=== PATIENT | female | born 1935 | race Caucasian/White ===

== ENCOUNTER → 2021-07-02 | Outpatient (CLI) | payer MEDICARE, OTHER | END | disposition home or self-care (01) | LOC: Rad HDHVI 11:19 | PROVIDERS: ATTEND Internal Medicine Cardiovascular Disease | DX: J90 Pleural effusion, not elsewhere classified (principal); M47.814 Spondylosis without myelopathy or radiculopathy, thoracic region; Z91.81 History of falling | CPT/HCPCS: 71046 ==

== ENCOUNTER → 2021-07-05 | Outpatient (CLI) | payer MEDICARE, OTHER | END | disposition home or self-care (01) | LOC: Rad HDHVI 15:19 | PROVIDERS: ATTEND Internal Medicine Cardiovascular Disease | DX: R07.9 Chest pain, unspecified (principal); R06.02 Shortness of breath | CPT/HCPCS: 93306 ==

== ENCOUNTER → 2021-08-04 | Outpatient (CLI) | payer MEDICARE, OTHER ==
[~2021-08-04] VITALS: Ht 165.1 cm; Wt 79.4 kg
[~2021-08-04] MED LIST: ADENOSINE 67 MG in GIVE UN-DILUTED 0 ML IV ONE; ADENOSINE 90 MG/30 ML INJ IV ONE
[2021-08-04 11:26] LABS: Basophils # (auto) 0.1 10 ^3/uL (0-0.2); Basophils % (auto) 1.4 % (0.0-2.0); Eosinophils # (auto) 0.1 10 ^3/uL (0-0.8); Eosinophils % (auto) 1.2 % (0.0-7.0); Hematocrit 36.5 % (36.0-46.0); Hemoglobin 12.2 g/dL (12.2-16.2); Lymphocytes # (auto) 1.2 10 ^3/uL (0.4-5.4); Lymphocytes % (auto) 25.3 % (10.0-50.0); Mean Corpuscular Hemoglobin 30.9 pg (28.0-32.0); Mean Corpuscular Hgb Conc. 33.3 g/dL (32.0-36.0); Mean Corpuscular Volume 92.8 fL (80.0-100.0); Monocytes # (auto) 0.4 10 ^3/uL (0-1.3); Monocytes % (auto) 8.2 % (0.0-12.0); Neutrophils % (auto) 63.9 % (37.0-80.0); Nucleated Red Blood Cells % 0.1 %; Red Blood Cells 3.93 10^6/uL (4.0-5.20); Red Cell Distribution Width 14.8 % (11.8-14.3); White Blood Cell 4.7 10^3/uL (4.4-10.8)
[2021-08-04 11:27] LABS: Urine Blood Negative /uL (Negative); Urine Specific Gravity 1.023 (1.001-1.035)
[2021-08-04 11:48] LABS: Albumin 3.5 g/dL (3.4-5.0); Calcium 9.5 mg/dL (8.5-10.1); Potassium 4.1 mmol/L (3.5-5.1)
[2021-08-04 11:51] LABS: BUN/Creatinine Ratio 24.8
[2021-08-04 11:53] LABS: Bilirubin, Total 0.6 mg/dL (0.2-1.0)
[2021-08-04 11:59] LABS: Free T4 (Free Thyroxine) 1.13 ng/dL (0.89-1.76)
== END | disposition home or self-care (01) ==
LOC: Rad HDHVI 08:47
PROVIDERS: ATTEND Internal Medicine Cardiovascular Disease
DX: I10 Essential (primary) hypertension (principal); D51.3 Other dietary vitamin B12 deficiency anemia; E11.9 Type 2 diabetes mellitus without complications; E55.9 Vitamin D deficiency, unspecified; D64.9 Anemia, unspecified; R00.2 Palpitations; R53.1 Weakness; R30.0 Dysuria
CPT/HCPCS: 36415; 78452; 80053; 80061; 81003; 82306; 82607; 83036; 84439; 84443; 85025; 87086; 87088; 87186; 93005; 96374; 96375; A9500; J0153

== ENCOUNTER → 2021-08-06 | Outpatient (CLI) | payer MEDICARE, OTHER | END | disposition home or self-care (01) | LOC: Rad HDHVI 10:23 | PROVIDERS: ATTEND Internal Medicine Cardiovascular Disease | DX: I82.401 Acute embolism and thrombosis of unspecified deep veins of right lower extremity (principal); R60.9 Edema, unspecified | CPT/HCPCS: 93971 ==

== ENCOUNTER → 2021-12-13 | Outpatient (CLI) | payer MEDICARE, OTHER ==
[2021-12-13 11:29] LABS: Urine Blood Negative /uL (Negative); Urine Specific Gravity 1.018 (1.001-1.035)
[2021-12-13 11:40] LABS: Basophils # (auto) 0.1 10 ^3/uL (0-0.2); Basophils % (auto) 1.1 % (0.0-2.0); Eosinophils # (auto) 0 10 ^3/uL (0-0.8); Eosinophils % (auto) 0.8 % (0.0-7.0); Hematocrit 34.5 % (36.0-46.0); Hemoglobin 11.7 g/dL (12.2-16.2); Lymphocytes # (auto) 1.3 10 ^3/uL (0.4-5.4); Lymphocytes % (auto) 24.4 % (10.0-50.0); Mean Corpuscular Hemoglobin 31.2 pg (28.0-32.0); Mean Corpuscular Volume 91.9 fL (80.0-100.0); Monocytes # (auto) 0.5 10 ^3/uL (0-1.3); Monocytes % (auto) 10.1 % (0.0-12.0); Neutrophils # (auto) 3.4 10 ^3/uL (1.6-8.6); Neutrophils % (auto) 63.6 % (37.0-80.0); Nucleated Red Blood Cells % 0.1 %; Red Blood Cells 3.76 10^6/uL (4.0-5.20); Red Cell Distribution Width 14.4 % (11.8-14.3); White Blood Cell 5.3 10^3/uL (4.4-10.8)
[2021-12-13 11:57] LABS: Potassium 4.1 mmol/L (3.5-5.1)
[2021-12-13 12:04] LABS: BUN/Creatinine Ratio 18.1; Calcium 9.1 mg/dL (8.5-10.1)
== END | disposition home or self-care (01) ==
LOC: LAB 09:27
PROVIDERS: ATTEND Internal Medicine Cardiovascular Disease
DX: N39.0 Urinary tract infection, site not specified (principal); D64.9 Anemia, unspecified; I10 Essential (primary) hypertension
CPT/HCPCS: 36415; 80048; 81003; 85025; 87086; 87088; 87186

== ENCOUNTER → 2021-12-24 | Outpatient (CLI) | payer MEDICARE, OTHER ==
[~2021-12-24] MED LIST changes: -ADENOSINE 67 MG in GIVE UN-DILUTED 0 ML IV ONE; -ADENOSINE 90 MG/30 ML INJ IV ONE; +levoFLOXacin 500MG 100 ML IV ONE
[2021-12-24 12:55] VITALS: BP 144/76
[2021-12-24 14:02] VITALS: BP 142/77
== END | disposition home or self-care (01) ==
LOC: CHF HDHVI 12:59
PROVIDERS: ATTEND Internal Medicine Cardiovascular Disease
DX: N39.0 Urinary tract infection, site not specified (principal); I10 Essential (primary) hypertension; D64.9 Anemia, unspecified
CPT/HCPCS: 96365; G0463; J1956

== ENCOUNTER → 2022-02-28 | Outpatient (CLI) | payer MEDICARE, OTHER | END | disposition home or self-care (01) | LOC: Rad HDHVI 08:42 | PROVIDERS: ATTEND Internal Medicine Cardiovascular Disease | DX: I82.403 Acute embolism and thrombosis of unspecified deep veins of lower extremity, bilateral (principal); M79.605 Pain in left leg | CPT/HCPCS: 93971 ==

== ENCOUNTER → 2022-04-06 | Outpatient (CLI) | payer MEDICARE, OTHER ==
[~2022-04-06] MED LIST changes: +ALUM & MAG HYDROX-SIMETH LIQ(MAALOX) 30 ML ONE; +ALUM & MAG HYDROX-SIMETH LIQ(MAALOX) 30 ML PO ONE; +DONNATAL 5ml ORAL Elix (BELLADONNA ALK-PHENOBARB) ONE; +DONNATAL 5ml ORAL Elix (BELLADONNA ALK-PHENOBARB) PO ONE; +LIDOCAINE VISCOUS 2% 15ML UD ONE; +LIDOCAINE VISCOUS 2% 15ML UD PO ONE; +READI-CAT 2 (BARIUM SULF)(VANILLA SMOOTHIE) 450ML ONE; -levoFLOXacin 500MG 100 ML IV ONE
[2022-04-06 11:10] VITALS: BP 124/62
[2022-04-06 12:00] VITALS: BP 133/60
== END | disposition home or self-care (01) ==
LOC: Rad HDHVI 11:11
PROVIDERS: ATTEND Internal Medicine Cardiovascular Disease
DX: K40.90 Unilateral inguinal hernia, without obstruction or gangrene, not specified as recurrent (principal); K86.89 Other specified diseases of pancreas; I70.0 Atherosclerosis of aorta; R10.9 Unspecified abdominal pain
CPT/HCPCS: 74176; G0463

== ENCOUNTER → 2022-07-11 | Outpatient (CLI) | payer MEDICARE, OTHER | END | disposition home or self-care (01) | LOC: Rad HDHVI 15:47 | PROVIDERS: ATTEND Internal Medicine Cardiovascular Disease | DX: I82.431 Acute embolism and thrombosis of right popliteal vein (principal); R60.9 Edema, unspecified | CPT/HCPCS: 93971 ==

== ENCOUNTER → 2022-08-09 | Outpatient (CLI) | payer MEDICARE, OTHER ==
[2022-08-09 13:30] LABS: Basophils # (auto) 0.1 10 ^3/uL (0-0.2); Basophils % (auto) 1.1 % (0.0-2.0); Eosinophils # (auto) 0.1 10 ^3/uL (0-0.8); Eosinophils % (auto) 1.8 % (0.0-7.0); Hematocrit 38.1 % (36.0-46.0); Hemoglobin 12.6 g/dL (12.2-16.2); Lymphocytes # (auto) 1.4 10 ^3/uL (0.4-5.4); Lymphocytes % (auto) 27.2 % (10.0-50.0); Monocytes # (auto) 0.6 10 ^3/uL (0-1.3); Monocytes % (auto) 11.8 % (0.0-12.0); Neutrophils % (auto) 58.1 % (37.0-80.0); Nucleated Red Blood Cells % 0.2 %; Red Blood Cells 4.05 10^6/uL (4.0-5.20); Red Cell Distribution Width 14.4 % (11.8-14.3); White Blood Cell 5.1 10^3/uL (4.4-10.8)
[2022-08-09 13:38] LABS: Urine Blood Negative /uL (Negative); Urine Specific Gravity 1.024 (1.001-1.035)
[2022-08-09 13:47] LABS: Albumin 3.5 g/dL (3.4-5.0); Calcium 9.2 mg/dL (8.5-10.1); Potassium 4.1 mmol/L (3.5-5.1)
[2022-08-09 13:50] LABS: BUN/Creatinine Ratio 18.6
[2022-08-09 13:53] LABS: Bilirubin, Total 0.6 mg/dL (0.2-1.0); Total Protein 6.5 g/dL (6.4-8.2)
[2022-08-09 17:03] LABS: Free T4 (Free Thyroxine) 0.89 ng/dL (0.89-1.76)
== END | disposition home or self-care (01) ==
LOC: LAB 08:49
PROVIDERS: ATTEND Internal Medicine Cardiovascular Disease
DX: E55.9 Vitamin D deficiency, unspecified (principal); D51.3 Other dietary vitamin B12 deficiency anemia; D64.9 Anemia, unspecified; E11.9 Type 2 diabetes mellitus without complications; I10 Essential (primary) hypertension; R00.2 Palpitations; R53.1 Weakness; R30.0 Dysuria
CPT/HCPCS: 36415; 80053; 80061; 81003; 82306; 82607; 83036; 84439; 84443; 85025; 87086; 87088; 87186

== ENCOUNTER 2023-01-01 12:08 | Emergency (ER) | payer MEDICARE, OTHER ==
[~2023-01-01] VITALS: Ht 167.6 cm; Wt 81.0 kg
[2023-01-01 12:34] VITALS: BP 149/57
== END 2023-01-01 18:55 | disposition home or self-care (01) ==
LOC: ER 12:08
DX: S80.01XA Contusion of right knee, initial encounter (principal); Z96.651 Presence of right artificial knee joint; W18.39XA Other fall on same level, initial encounter; Y93.89 Activity, other specified; Y92.511 Restaurant or cafe as the place of occurrence of the external cause; Y99.8 Other external cause status
CPT/HCPCS: 73562

== ENCOUNTER → 2023-04-11 | Outpatient (CLI) | payer MEDICARE, OTHER ==
[2023-04-11 10:09] LABS: Basophils # (auto) 0.1 10 ^3/uL (0-0.2); Basophils % (auto) 1.5 % (0.0-2.0); Eosinophils # (auto) 0.1 10 ^3/uL (0-0.8); Eosinophils % (auto) 2.4 % (0.0-7.0); Hematocrit 36.2 % (36.0-46.0); Hemoglobin 12.2 g/dL (12.2-16.2); Lymphocytes # (auto) 1.4 10 ^3/uL (0.4-5.4); Lymphocytes % (auto) 27.2 % (10.0-50.0); Mean Corpuscular Hgb Conc. 33.6 g/dL (32.0-36.0); Mean Corpuscular Volume 92.3 fL (80.0-100.0); Monocytes # (auto) 0.5 10 ^3/uL (0-1.3); Monocytes % (auto) 10.6 % (0.0-12.0); Neutrophils % (auto) 58.3 % (37.0-80.0); Nucleated Red Blood Cells % 0.1 %; Red Blood Cells 3.92 10^6/uL (4.0-5.20); Red Cell Distribution Width 14.6 % (11.8-14.3); White Blood Cell 5.1 10^3/uL (4.4-10.8)
[2023-04-11 11:02] LABS: Urine Bacteria FEW /hpf (None Seen); Urine Blood Negative /uL (Negative); Urine Clarity Clear (Clear); Urine Color Yellow (Yellow); Urine Protein, UAD Negative (Negative); Urine Specific Gravity 1.023 (1.001-1.035); Urine Urobilinogen Normal (Negative); Urine WBC 21 /hpf (0 - 5)
[2023-04-11 11:16] LABS: Albumin 3.9 g/dL (3.2-4.8); Alkaline Phosphatase 85 U/L (46-116); Aspartate Aminotransferase 17 U/L (13-40); BUN/Creatinine Ratio 17.9 (10.0-20.0); Bilirubin, Direct 0.2 mg/dL (<0.3); Bilirubin, Total 0.8 mg/dL (0.2-1.0); Blood Urea Nitrogen 22 mg/dL (9-23); Calcium 9.3 mg/dL (8.5-10.1); Carbon Dioxide 28 mmol/L (20-30); Cholesterol 178 mg/dL (< 200); Glucose 82 mg/dL (74-106); HDL Cholesterol 64 mg/dL (40-59); LDL Cholesterol 105 mg/dL (< 100); Total Protein 6.3 g/dL (5.7-8.2); Triglycerides 79 mg/dL (< 150)
[2023-04-11 11:18] LABS: Alanine Aminotransferase 9 U/L (7-40)
[2023-04-11 11:30] LABS: Anion Gap 5 (5-15); Chloride 107 mmol/L (98-107); Potassium 4.7 mmol/L (3.5-5.1); Sodium 140 mmol/L (136-145)
== END | disposition home or self-care (01) ==
LOC: LAB 09:48
PROVIDERS: ATTEND Internal Medicine Cardiovascular Disease
DX: D51.3 Other dietary vitamin B12 deficiency anemia (principal); D64.9 Anemia, unspecified; E11.9 Type 2 diabetes mellitus without complications; E55.9 Vitamin D deficiency, unspecified; I10 Essential (primary) hypertension; R00.2 Palpitations; R53.1 Weakness; R30.0 Dysuria
CPT/HCPCS: 36415; 80048; 80061; 80076; 81001; 82306; 83036; 84443; 85025

== ENCOUNTER → 2023-08-09 | Outpatient (CLI) | payer MEDICARE, OTHER | END | disposition home or self-care (01) | LOC: Rad HDHVI 12:26 | PROVIDERS: ATTEND Internal Medicine Cardiovascular Disease | DX: I65.23 Occlusion and stenosis of bilateral carotid arteries (principal); I10 Essential (primary) hypertension; R07.89 Other chest pain | CPT/HCPCS: 93880 ==

== ENCOUNTER → 2023-09-05 | Outpatient (CLI) | payer MEDICARE, OTHER | END | disposition home or self-care (01) | LOC: Rad HDHVI 14:55 | PROVIDERS: ATTEND Internal Medicine Cardiovascular Disease | DX: I08.1 Rheumatic disorders of both mitral and tricuspid valves (principal); I10 Essential (primary) hypertension | CPT/HCPCS: 93306 ==

== ENCOUNTER → 2023-09-18 | Outpatient (CLI) | payer MEDICARE, OTHER ==
[~2023-09-18] MED LIST changes: -ALUM & MAG HYDROX-SIMETH LIQ(MAALOX) 30 ML ONE; -ALUM & MAG HYDROX-SIMETH LIQ(MAALOX) 30 ML PO ONE; -DONNATAL 5ml ORAL Elix (BELLADONNA ALK-PHENOBARB) ONE; -DONNATAL 5ml ORAL Elix (BELLADONNA ALK-PHENOBARB) PO ONE; +IOHEXOL 350 MG/ML 100ML IJ ONE; -LIDOCAINE VISCOUS 2% 15ML UD ONE; -LIDOCAINE VISCOUS 2% 15ML UD PO ONE; +METO25TA93 PO
[2023-09-18 12:35] VITALS: BP 140/80; PULSE 67; RESP 18; O2SAT 97
[2023-09-18 13:50] VITALS: BP 159/76; PULSE 73; RESP 18; O2SAT 97
== END | disposition home or self-care (01) ==
LOC: Rad HDHVI 12:18
PROVIDERS: ATTEND Internal Medicine Cardiovascular Disease
DX: K57.30 Diverticulosis of large intestine without perforation or abscess without bleeding (principal); K81.0 Acute cholecystitis; R60.9 Edema, unspecified
CPT/HCPCS: 74177; G0463; Q9967

== ENCOUNTER 2023-09-19 13:21 | Inpatient (IN) | payer MEDICARE, OTHER ==
[~2023-09-19] VITALS: Ht 167.6 cm; Wt 88.4 kg
[2023-09-19 14:52] LABS: Basophils # (auto) 0 10 ^3/uL (0-0.2); Basophils % (auto) 0.7 % (0.0-2.0); Eosinophils # (auto) 0.2 10 ^3/uL (0-0.8); Hematocrit 38.5 % (36.0-46.0); Hemoglobin 12.9 g/dL (12.2-16.2); Lymphocytes # (auto) 1.5 10 ^3/uL (0.4-5.4); Lymphocytes % (auto) 22.2 % (10.0-50.0); Mean Corpuscular Hemoglobin 31.3 pg (28.0-32.0); Mean Corpuscular Hgb Conc. 33.6 g/dL (32.0-36.0); Mean Corpuscular Volume 93.2 fL (80.0-100.0); Monocytes # (auto) 0.7 10 ^3/uL (0-1.3); Neutrophils # (auto) 4.1 10 ^3/uL (1.6-8.6); Neutrophils % (auto) 63.1 % (37.0-80.0); Red Blood Cells 4.12 10^6/uL (4.0-5.20); Red Cell Distribution Width 14.3 % (11.8-14.3); White Blood Cell 6.5 10^3/uL (4.4-10.8)
[2023-09-19 15:07] LABS: Albumin 4.3 g/dL (3.2-4.8); Alkaline Phosphatase 102 U/L (46-116); Anion Gap 5 (5-15); Aspartate Aminotransferase 19 U/L (13-40); BUN/Creatinine Ratio 15.1 (10.0-20.0); Blood Urea Nitrogen 19 mg/dL (9-23); Calcium 9.1 mg/dL (8.7-10.4); Carbon Dioxide 25 mmol/L (20-30); Chloride 106 mmol/L (98-107); Glucose 90 mg/dL (74-106); Lipase 39 U/L (12-53); Potassium 4.5 mmol/L (3.5-5.1); Sodium 136 mmol/L (136-145)
[2023-09-19 15:08] LABS: Bilirubin, Total 0.7 mg/dL (0.2-1.0); Total Protein 6.8 g/dL (5.7-8.2)
[2023-09-19 15:12] LABS: Alanine Aminotransferase < 9 U/L (7-40)
[2023-09-19 15:27] LABS: INR 1.09 (0.9-1.15); Partial Thromboplastin Time 30.5 SEC (24.5-34.5); Prothrombin Time 11.4 sec (9.3-11.8)
[2023-09-19] MEDS ORDERED: MORPHINE SULFATE INJ 2 MG/ml SYRG IV PRN (15:30)
[2023-09-19] MEDS ORDERED: DOCUSATE SOD 100 MG CAP PO PRN (15:30)
[2023-09-19] MEDS ORDERED: ONDANSETRON HCL 4 MG/2 ML VIAL IV PRN (15:30)
[2023-09-19] MEDS ORDERED: hydrALAZINE HCL 20 MG/ML VL IV PRN (15:30)
[2023-09-19] MEDS ORDERED: METO25TA93 PO (15:34)
[2023-09-19] MEDS: GASTROGRAFIN 120 ML SOL ONE (17:30)
[2023-09-19] MEDS: SODIUM CHLORIDE 0.9% 1,000 ML IV SCH (20:43)
[2023-09-20 00:46] VITALS: BP 148/84; PULSE 68; RESP 16; TEMP 97.6; O2SAT 99
[2023-09-20 05:00] VITALS: BP 144/78; PULSE 73; RESP 16; TEMP 97.4; O2SAT 98
[2023-09-20 06:46] LABS: Basophils # (auto) 0.1 10 ^3/uL (0-0.2); Eosinophils # (auto) 0.2 10 ^3/uL (0-0.8); Eosinophils % (auto) 3.1 % (0.0-7.0); Hematocrit 34.1 % (36.0-46.0); Hemoglobin 11.3 g/dL (12.2-16.2); Lymphocytes # (auto) 1.4 10 ^3/uL (0.4-5.4); Lymphocytes % (auto) 27.4 % (10.0-50.0); Mean Corpuscular Hemoglobin 31.3 pg (28.0-32.0); Mean Corpuscular Hgb Conc. 33.1 g/dL (32.0-36.0); Mean Corpuscular Volume 94.4 fL (80.0-100.0); Monocytes # (auto) 0.6 10 ^3/uL (0-1.3); Monocytes % (auto) 11.4 % (0.0-12.0); Neutrophils # (auto) 2.8 10 ^3/uL (1.6-8.6); Neutrophils % (auto) 57.1 % (37.0-80.0); Red Blood Cells 3.61 10^6/uL (4.0-5.20); Red Cell Distribution Width 14.4 % (11.8-14.3)
[2023-09-20 07:05] LABS: Albumin 3.5 g/dL (3.2-4.8); Alkaline Phosphatase 82 U/L (46-116); Calcium 8.8 mg/dL (8.5-10.1); Carbon Dioxide 24 mmol/L (20-30); Chloride 110 mmol/L (98-107); Glucose 76 mg/dL (74-106)
[2023-09-20 07:06] LABS: Anion Gap 8 (5-15); Aspartate Aminotransferase 18 U/L (13-40); BUN/Creatinine Ratio 13.8 (10.0-20.0); Bilirubin, Total 0.6 mg/dL (0.2-1.0); Blood Urea Nitrogen 16 mg/dL (9-23); Sodium 142 mmol/L (136-145); Total Protein 5.7 g/dL (5.7-8.2)
[2023-09-20 07:17] LABS: Alanine Aminotransferase < 9 U/L (7-40)
[2023-09-20 08:00] VITALS: RESP 17; O2SAT 95
[2023-09-20 09:08] VITALS: BP 157/73; PULSE 72; RESP 19; TEMP 97.7; O2SAT 98
[2023-09-20] MEDS: PANTOPRAZOLE 40 MG/10 ML VIAL INJ IV SCH (09:38)
[2023-09-20] MEDS: ENOXAPARIN SOD 40 MG/0.4 ML SYRINGE SC SCH (09:43)
[2023-09-20] MEDS: METOPROLOL SUCCINATE XL 50 MG TAB PO SCH (09:47)
[2023-09-20] MEDS: SODIUM CHLORIDE 0.9% 1,000 ML IV SCH (10:15)
[2023-09-20 13:00] VITALS: BP 159/54; PULSE 60; RESP 19; TEMP 98; O2SAT 97
[2023-09-21] MEDS ORDERED: PANTOPRAZOLE 40 MG TAB PO SCH (10:00)
== END 2023-09-20 18:28 | disposition home or self-care (01) | DRG 394 ==
LOC: ER 13:21 → OVERFLOW 15:23 → CENTRAL 23:37
PROVIDERS: ADMIT Nurse Practitioner Family; ATTEND Internal Medicine
DX: K40.30 Unilateral inguinal hernia, with obstruction, without gangrene, not specified as recurrent (principal); K56.609 Unspecified intestinal obstruction, unspecified as to partial versus complete obstruction; Z96.643 Presence of artificial hip joint, bilateral; Z96.659 Presence of unspecified artificial knee joint; E66.9 Obesity, unspecified; D64.9 Anemia, unspecified; K21.9 Gastro-esophageal reflux disease without esophagitis; I10 Essential (primary) hypertension; Z85.3 Personal history of malignant neoplasm of breast; Z86.718 Personal history of other venous thrombosis and embolism; Z90.11 Acquired absence of right breast and nipple; Z90.710 Acquired absence of both cervix and uterus; Z68.31 Body mass index [BMI] 31.0-31.9, adult
CPT/HCPCS: 36415; 74018; 74250; 76705; 80053; 83690; 85025; 85610; 85730; 86850; 86900; 86901; C9113; G0378

== ENCOUNTER → 2024-05-27 | Outpatient (CLI) | payer MEDICARE, OTHER ==
[~2024-05-27] MED LIST changes: -IOHEXOL 350 MG/ML 100ML IJ ONE; -READI-CAT 2 (BARIUM SULF)(VANILLA SMOOTHIE) 450ML ONE
[2024-05-27 11:52] LABS: Basophils # (auto) 0.1 10 ^3/uL (0-0.2); Basophils % (auto) 0.9 % (0.0-2.0); Eosinophils # (auto) 0.1 10 ^3/uL (0-0.8); Eosinophils % (auto) 1.4 % (0.0-7.0); Hematocrit 35.9 % (36.0-46.0); Hemoglobin 12.2 g/dL (12.2-16.2); Lymphocytes # (auto) 1.6 10 ^3/uL (0.4-5.4); Lymphocytes % (auto) 23.9 % (10.0-50.0); Mean Corpuscular Hemoglobin 32.4 pg (28.0-32.0); Mean Corpuscular Volume 95.1 fL (80.0-100.0); Monocytes # (auto) 0.7 10 ^3/uL (0-1.3); Monocytes % (auto) 10.2 % (0.0-12.0); Neutrophils # (auto) 4.1 10 ^3/uL (1.6-8.6); Neutrophils % (auto) 63.6 % (37.0-80.0); Nucleated Red Blood Cells % 0.1 %; Platelet Count (auto) 216 10^3/uL (140-450); Red Blood Cells 3.77 10^6/uL (4.0-5.20); Red Cell Distribution Width 16.1 % (11.8-14.3); White Blood Cell 6.5 10^3/uL (4.4-10.8)
[2024-05-27 11:56] LABS: Urine Blood Negative /uL (Negative); Urine Clarity Clear (Clear); Urine Color Yellow (Yellow); Urine Protein, UAD Negative (Negative); Urine Specific Gravity 1.023 (1.001-1.035); Urine Urobilinogen Normal (Negative)
[2024-05-27 12:11] LABS: Alanine Aminotransferase 12 U/L (7-40); Albumin 3.8 g/dL (3.2-4.8); Alkaline Phosphatase 88 U/L (46-116); Anion Gap 5 (5-15); Aspartate Aminotransferase 15 U/L (13-40); Blood Urea Nitrogen 21 mg/dL (9-23); Calcium 9.5 mg/dL (8.7-10.4); Carbon Dioxide 27 mmol/L (20-31); Chloride 109 mmol/L (98-107); Cholesterol 186 mg/dL (< 200); Glucose 94 mg/dL (74-106); LDL Cholesterol 108 mg/dL (< 100); Potassium 4.6 mmol/L (3.5-5.1); Sodium 141 mmol/L (136-145); Triglycerides 98 mg/dL (< 150)
[2024-05-27 12:12] LABS: Bilirubin, Direct 0.2 mg/dL (<0.3); Bilirubin, Total 0.7 mg/dL (0.2-1.0); HDL Cholesterol 63 mg/dL (40-59); Total Protein 6.3 g/dL (5.7-8.2)
== END | disposition home or self-care (01) ==
LOC: LAB 11:05
PROVIDERS: ATTEND Internal Medicine Cardiovascular Disease
DX: I10 Essential (primary) hypertension (principal); E11.9 Type 2 diabetes mellitus without complications; E55.9 Vitamin D deficiency, unspecified; R30.0 Dysuria; D61.9 Aplastic anemia, unspecified; R00.2 Palpitations
CPT/HCPCS: 36415; 80048; 80061; 80076; 81003; 83036; 85025

== ENCOUNTER → 2024-08-20 | Outpatient (CLI) | payer MEDICARE, OTHER ==
--- NOTE | 2024-08-20 13:59 | DVHSR ---
APPROVED REPORT EXAM: Two-dimensional and M-mode echocardiogram with Doppler and color Doppler. DIMENSIONS LVDd4.1 (3.8-5.7cm)LA (2D)4.3 (1.9-4.0cm)Aortic Root3.3 (2.0-3.7cm) LVDs3.0 (2.5-4.0cm)LA (MM) (1.9-4.0cm)Aortic Cusp Exc1.5 (1.5-2.0cm) EF (%) 53.4 (55-70%)Rt. Atrium3.5 (1.9-4.0cm)Asc. Aorta cm IVSd0.9 (0.7-1.1cm)RV (D)3.0 (1.8-2.4cm) PWd1.1 (0.7-1.1cm) Mitral Valve MitralMitral Stenosis E wave0.68m/sMV Mean GR.mmHg A wave0.75m/sMV Peak GR.42mmHg E/A ratio0.92D MVAcm2 DECEL [id number] 1/2 Timems Aortic Valve Aortic ValveAortic Stenosis V11.28m/Janelle Mean GR.4mmHg V21.41m/Janelle Peak GR.8mmHg Pulmonic Valve V20.72m/s Tricuspid Valve TR Velocity2.46m/s [id number] LEFT VENTRICLE The Ejection Fraction is 50-55%. ATRIA The left atrium is mildly dilated. The right atrium size is normal. MITRAL VALVE The mitral valve is normal in structure and function. Mitral regurgitation is mild. PULMONIC VALVE The pulmonic valve is not well visualized. TRICUSPID VALVE The tricuspid valve is grossly normal. There is mild tricuspid regurgitation. AORTIC VALVE The aortic valve is mildlysclerotic. No aortic regurgitation is present. GREAT VESSELS The aortic root is normal size. PERICARDIAL EFFUSION There is no pericardial effusion. Conclusion EF 50-55% LAE MILD MR MILD AV SCLEROSIS
== END | disposition home or self-care (01) ==
LOC: Rad HDHVI 10:41
PROVIDERS: ATTEND Internal Medicine Cardiovascular Disease
DX: I08.3 Combined rheumatic disorders of mitral, aortic and tricuspid valves (principal); I11.0 Hypertensive heart disease with heart failure; I50.33 Acute on chronic diastolic (congestive) heart failure
CPT/HCPCS: 93306

== ENCOUNTER → 2024-08-26 | Outpatient (CLI) | payer MEDICARE, OTHER | END | disposition home or self-care (01) | LOC: Rad HDHVI 13:06 | PROVIDERS: ATTEND Internal Medicine Cardiovascular Disease | DX: I10 Essential (primary) hypertension (principal) | CPT/HCPCS: 93880 ==

== ENCOUNTER → 2024-12-03 | Outpatient (CLI) | payer MEDICARE, OTHER ==
[2024-12-03 10:35] LABS: Basophils # (auto) 0.1 10 ^3/uL (0-0.2); Basophils % (auto) 1.3 % (0.0-2.0); Eosinophils # (auto) 0.1 10 ^3/uL (0-0.8); Hematocrit 39.7 % (36.0-46.0); Hemoglobin 13.4 g/dL (12.2-16.2); Lymphocytes # (auto) 1.7 10 ^3/uL (0.4-5.4); Lymphocytes % (auto) 30.7 % (10.0-50.0); Mean Corpuscular Hemoglobin 31.1 pg (28.0-32.0); Mean Corpuscular Hgb Conc. 33.7 g/dL (32.0-36.0); Mean Corpuscular Volume 92.2 fL (80.0-100.0); Monocytes # (auto) 0.6 10 ^3/uL (0-1.3); Monocytes % (auto) 11.2 % (0.0-12.0); Neutrophils # (auto) 3.1 10 ^3/uL (1.6-8.6); Neutrophils % (auto) 54.8 % (37.0-80.0); Platelet Count (auto) 231 10^3/uL (140-450); Red Cell Distribution Width 14.6 % (11.8-14.3); White Blood Cell 5.6 10^3/uL (4.4-10.8)
[2024-12-03 10:40] LABS: Urine Blood TRACE /uL (Negative); Urine Clarity Turbid (Clear); Urine Color Yellow (Yellow); Urine Protein, UAD TRACE (Negative); Urine Specific Gravity 1.025 (1.001-1.035); Urine Urobilinogen Normal (Negative); Urine pH 5.5 (5.0-9.0)
[2024-12-03 10:41] LABS: Alanine Aminotransferase 14 U/L (7-40); Albumin 4.2 g/dL (3.2-4.8); Alkaline Phosphatase 102 U/L (46-116); Anion Gap 7 (5-15); Aspartate Aminotransferase 16 U/L (13-40); BUN/Creatinine Ratio 20.4 (10.0-20.0); Blood Urea Nitrogen 23 mg/dL (9-23); Carbon Dioxide 28 mmol/L (20-31); Chloride 107 mmol/L (98-107); Cholesterol 188 mg/dL (< 200); Glucose 92 mg/dL (74-106); Potassium 4.4 mmol/L (3.5-5.1); Sodium 142 mmol/L (136-145); Total Protein 6.6 g/dL (5.7-8.2); Triglycerides 126 mg/dL (< 150)
[2024-12-03 10:42] LABS: Bilirubin, Direct 0.2 mg/dL (<0.3); Bilirubin, Total 0.6 mg/dL (0.2-1.0)
[2024-12-03 10:44] LABS: HDL Cholesterol 61 mg/dL (40-59); LDL Cholesterol 108 mg/dL (< 100)
== END | disposition home or self-care (01) ==
LOC: LAB 09:58
PROVIDERS: ATTEND Internal Medicine Cardiovascular Disease
DX: I10 Essential (primary) hypertension (principal); E11.9 Type 2 diabetes mellitus without complications; E55.9 Vitamin D deficiency, unspecified; D64.9 Anemia, unspecified
CPT/HCPCS: 36415; 80048; 80061; 80076; 81003; 83036; 84443; 85025

== ENCOUNTER 2025-01-15 07:56 | Inpatient (IN) | payer MEDICARE, OTHER ==
[2025-01-07 11:33] LABS: Basophils # (auto) 0.1 10 ^3/uL (0-0.2); Basophils % (auto) 0.9 % (0.0-2.0); Eosinophils # (auto) 0.1 10 ^3/uL (0-0.8); Eosinophils % (auto) 1.9 % (0.0-7.0); Hematocrit 38.8 % (36.0-46.0); Hemoglobin 13.1 g/dL (12.2-16.2); Lymphocytes # (auto) 1.7 10 ^3/uL (0.4-5.4); Lymphocytes % (auto) 22.5 % (10.0-50.0); Mean Corpuscular Hemoglobin 31.3 pg (28.0-32.0); Mean Corpuscular Hgb Conc. 33.8 g/dL (32.0-36.0); Mean Corpuscular Volume 92.5 fL (80.0-100.0); Monocytes # (auto) 0.7 10 ^3/uL (0-1.3); Monocytes % (auto) 9.9 % (0.0-12.0); Neutrophils # (auto) 4.9 10 ^3/uL (1.6-8.6); Neutrophils % (auto) 64.8 % (37.0-80.0); Platelet Count (auto) 254 10^3/uL (140-450); Red Cell Distribution Width 14.3 % (11.8-14.3); White Blood Cell 7.5 10^3/uL (4.4-10.8)
[2025-01-07 11:39] LABS: Urine Bacteria FEW /hpf (None Seen); Urine Blood Negative /uL (Negative); Urine Clarity Clear (Clear); Urine Color Yellow (Yellow); Urine Hyaline Cast FEW /lpf (0 - 2); Urine Mucus FEW (None Seen); Urine Protein, UAD Negative (Negative); Urine Specific Gravity 1.022 (1.001-1.035); Urine Squamous Epithelial Cell FEW /hpf (<5); Urine Urobilinogen Normal (Negative); Urine WBC 13 /HPF (0-5)
[2025-01-07 11:52] LABS: INR 1.02 (0.9-1.15); Partial Thromboplastin Time 26.5 SEC (24.5-34.5); Prothrombin Time 10.8 sec (9.3-11.8)
[2025-01-07 12:01] LABS: Alanine Aminotransferase 10 U/L (7-40); Albumin 4.3 g/dL (3.2-4.8); Alkaline Phosphatase 104 U/L (46-116); Anion Gap 7 (5-15); Aspartate Aminotransferase 17 U/L (<34); BUN/Creatinine Ratio 14.3 (10.0-20.0); Blood Urea Nitrogen 17 mg/dL (9-23); Calcium 9.7 mg/dL (8.7-10.4); Carbon Dioxide 29 mmol/L (20-31); Chloride 106 mmol/L (98-107); Glucose 80 mg/dL (74-106); Sodium 142 mmol/L (136-145); Total Protein 6.8 g/dL (5.7-8.2)
[2025-01-07 12:02] LABS: Bilirubin, Total 0.5 mg/dL (0.2-1.0)
[~2025-01-15] VITALS: Ht 167.6 cm; Wt 91.4 kg
[~2025-01-15 07:56] MED LIST changes: +APIX5TAB PO; +CHOL25CH3 PO; +CRAN400T6 PO; +FURO1TAB31 PO; +POLY335015 PO; +POTA-36 PO; +PROBTAB12 OR; +RED1CAP PO
[2025-01-15] MEDS: levoFLOXacin 500MG 100 ML IV ONE (08:25)
[2025-01-15] MEDS ORDERED: fentaNYL CITRATE 100 MCG/2 ML VL ONE (10:38)
[2025-01-15] MEDS ORDERED: LIDOCAINE 1% INJ PF 5ML AMP ONE (10:38)
[2025-01-15] MEDS ORDERED: DexAMETHasone SOD PHOS 10MG/1ML VIAL INJ ONE (10:38)
[2025-01-15] MEDS ORDERED: ONDANSETRON HCL 4 MG/2 ML VIAL ONE (10:38)
[2025-01-15] MEDS ORDERED: GLYCOPYRROLATE 0.2 MG/ML 1ML VIAL ONE (10:38)
[2025-01-15] MEDS ORDERED: PROPOFOL 10 MG/ML 20 ML IV ONE (10:38)
[2025-01-15] MEDS ORDERED: ceFAZolin 1GM VL ONE (11:41)
[2025-01-15] MEDS ORDERED: KETAMINE 50mg/ML 10ml Vial 10 ML ONE (11:41)
[2025-01-15] MEDS: FAMOTIDINE (10MG/ML) 2ML VL IV ONE (12:06)
[2025-01-15] MEDS: LIDOCAINE W/ EPINEPHRINE 1% 20ML VIAL ONE (12:15)
[2025-01-15] MEDS: BUPIVACAINE 0.5% P/F INJ 10 ML VIAL ONE (12:15)
[2025-01-15 12:23] VITALS: PULSE 91; RESP 14; O2SAT 98
[2025-01-15] MEDS: levoFLOXacin 500MG 100 ML IV SCH (12:30)
[2025-01-15] MEDS ORDERED: HYDROmorphone HCL 2 MG/ML VL/or syr IV PRN ×2 (12:30)
--- NOTE | 2025-01-15 14:28 | DVHOP ---
DATE OF SURGERY: 01/15/2025 PREOPERATIVE DIAGNOSIS: Right inguinal hernia. POSTOPERATIVE DIAGNOSIS: Right inguinal hernia. SURGEON: Nnamdi Kim MD. MANAGER FLOAT SURGEON: Medardo Ty. ANESTHESIA: General. ANESTHESIOLOGIST: Dr. Johnson. PROCEDURE: Repair of right inguinal hernia. DESCRIPTION OF PROCEDURE: Under adequate anesthesia with the patient's skin prepped and draped, an incision was made over the visible palpable bulge in the right groin. Adipose tissue divided down to the fibers of the external oblique aponeurosis. A large inguinal hernia was then encountered. It was grasped with a Carnegie forceps and placed on tension. Surrounding tissues were mobilized and transected so as to be able to reduce the hernia, which was then accomplished reducing the hernia through the internal inguinal ring. It was held back with a baby Mahendra retractor. The floor of the hernia was then exposed and dissected free of much adipose tissue. Repair consisted of interrupted nonabsorbable sutures through the conjoint tendon, Jaylen's ligament, and Poupart's ligament. The entire floor was repaired with careful protection of the iliac vein and the inguinal ilial nerve. The patient's wound was then irrigated and approximated using Monocryl sutures, Dermabond glue, and Steri-Strips. The patient remained stable throughout the procedure, left the operating room following an accurate needle and sponge count. Her daughter, Salud, was thoroughly informed at [phone]. Nnamdi Kim MD PF/ELVA TID: [id number] RECEIPT: [id number]
[2025-01-15] MEDS: CARVEDILOL 12.5 MG TAB PO ONE (14:33)
[2025-01-15] MEDS: D5W/SOD CHL 0.45%/KCL 20MEQ 1,000 ML IV SCH (14:39)
[2025-01-15] MEDS ORDERED: MORPHINE SULFATE INJ 2 MG/ml SYRG IV PRN (15:15)
[2025-01-15] MEDS ORDERED: NITROGLYCERIN 0.4 MG SL TAB SL PRN (15:15)
[2025-01-15] MEDS ORDERED: LABETALOL HCL 20 MG/4 ML VL IV PRN (15:45)
--- NOTE | 2025-01-15 15:47 | DVHHP2 ---
Review of Systems Allergies: Coded Allergies: Penicillins (Unverified Adverse Reaction, Unknown, unknown , 01/07/25) Medications Current Medications Medications Dose Ordered Sig/Robbin Route Start Time Stop Time Status Last Admin Dose Admin Potassium Chloride/Dextrose/ Sod Cl 1,000 ml @ 50 mls/hr Q20H IV 01/15/25 12:30 01/15/25 14:39 50 MLS/HR Hydromorphone HCl 0.25 mg Q2HPRN PRN IV 01/15/25 12:30 Levofloxacin/ Dextrose 100 ml @ 100 mls/hr Q48H IV 01/15/25 12:30 Acetaminophen/ Codeine Phosphate 1 tab Q4HP PRN PO 01/15/25 12:30 Nitroglycerin 0.4 mg Q5MINP PRN SL 01/15/25 15:15 Morphine Sulfate 2 mg Q30M PRN IV 01/15/25 15:15 Exam Vital Signs Vital Signs Date Time Temp Pulse Resp B/P (MAP) Pulse Ox O2 Delivery O2 Flow Rate FiO2 01/15/25 14:33 73 164/78 01/15/25 08:20 97.3 20 98 97.3 Labs/Xrays Labs Test 01/07/25 11:23 Range/Units White Blood Count 7.5 4.4-10.8 10^3/uL Red Blood Count 4.20 4.0-5.20 10^6/uL Hemoglobin 13.1 12.2-16.2 g/dL Hematocrit 38.8 36.0-46.0 % Mean Corpuscular Volume 92.5 80.0-100.0 fL Mean Corpuscular Hemoglobin 31.3 28.0-32.0 pg Mean Corpuscular Hemoglobin Concent 33.8 32.0-36.0 g/dL Red Cell Distribution Width 14.3 11.8-14.3 % Platelet Count 254 140-450 10^3/uL Mean Platelet Volume 8.1 6.9-10.8 fL Neutrophils (%) (Auto) 64.8 37.0-80.0 % Lymphocytes (%) (Auto) 22.5 10.0-50.0 % Monocytes (%) (Auto) 9.9 0.0-12.0 % Eosinophils (%) (Auto) 1.9 0.0-7.0 % Basophils (%) (Auto) 0.9 0.0-2.0 % Neutrophils # (Auto) 4.9 1.6-8.6 10 ^3/uL Lymphocytes # (Auto) 1.7 0.4-5.4 10 ^3/uL Monocytes # (Auto) 0.7 0-1.3 10 ^3/uL Eosinophils # (Auto) 0.1 0-0.8 10 ^3/uL Basophils # (Auto) 0.1 0-0.2 10 ^3/uL Nucleated Red Blood Cells 0.0 % Prothrombin Time 10.8 9.3-11.8 sec Prothrombin Time INR 1.02 0.9-1.15 Activated Partial Thromboplast Time 26.5 24.5-34.5 SEC Urine Color Yellow Yellow Urine Clarity Clear Clear Urine pH 5.0 5.0-9.0 Urine Specific [place] 1.022 1.001-1.035 Urine Protein Negative Negative Urine Ketones Negative Negative Urine Blood Negative Negative /uL Urine Nitrite 1+ H Negative Urine Bilirubin Negative Negative Urine Urobilinogen Normal Negative mg/dL Urine Leukocyte Esterase 1+ Negative /uL Urine RBC 1 0 - 4 /hpf Urine Microscopic WBC 13 H 0-5 /HPF Urine Squamous Epithelial Cells Few <5 /hpf Urine Bacteria Few H None Seen /hpf Urine Hyaline Casts Few 0 - 2 /lpf Urine Mucus Few None Seen Urine Glucose Normal Normal mg/dL Sodium Level 142 136-145 mmol/L Potassium Level 4.0 3.5-5.1 mmol/L Chloride Level 106 98-107 mmol/L Carbon Dioxide Level 29 20-31 mmol/L Anion Gap 7 5-15 Blood Urea Nitrogen 17 9-23 mg/dL Creatinine 1.19 H 0.550-1.02 mg/dL Glomerular Filtration Rate Calc 44 >90 mL/min BUN/Creatinine Ratio 14.3 10.0-20.0 Serum Glucose 80 74-106 mg/dL Calcium Level 9.7 8.7-10.4 mg/dL Total Bilirubin 0.5 0.2-1.0 mg/dL Aspartate Amino Transferase (AST) 17 <34 U/L Alanine Aminotransferase (ALT) 10 7-40 U/L Alkaline Phosphatase 104 46-116 U/L Total Protein 6.8 5.7-8.2 g/dL Albumin 4.3 3.2-4.8 g/dL Assessment/Plan Assessment/Plan SEE DICTATED NOTE Plan discussed with: Patient My Orders Orders - KT BROWN MD Procedure Category Date Status Time Admit ADMIT 01/15/25 Transmitted 15:03 Oxygen By Nasal RT 01/15/25 Transmitted Cannula 15:03 Nitroglycerin PHA 01/15/25 In Process Sublingual (Ntrostat 15:15 Morphine Sulfate PHA 01/15/25 In Process Injection 15:15 Stat Ekg For Chest [facility] 01/15/25 In Process Pain 15:03 Notify Md Of Changes [facility] 01/15/25 In Process From Base 15:03 Semi Driver For [facility] 01/15/25 In Process 24 Hours 15:03 Emergency Dysrhythmia [facility] 01/15/25 In Process Protocol 15:03 Rhythm Strips Once [facility] 01/15/25 In Process Every Shift 15:03 Date of Service: Jan 15, 2025 Billing Provider: KT BROWN MD Common Visit Codes: [id number] INP/OBS CARE (HIGH) Secondary Visit Codes: [id number] CARE PLAN 30 MINUTES KT BROWN MD Jan 15, 2025 15:47
--- NOTE | 2025-01-15 16:01 | DVHHP ---
ADMIT DATE: 01/15/2025 HISTORY OF PRESENT ILLNESS: The patient is an 89-year-old lady who has been admitted after she underwent repair of a right inguinal hernia. The patient denies any significant pain. No chest pain. No shortness of breath. No abdominal pain. No nausea or vomiting. REVIEW OF SYSTEMS: Review of rest of the other systems is currently negative. PAST MEDICAL HISTORY: Significant for DVT in the right leg, hypertension, previous history of breast cancer. MEDICATIONS: Include metoprolol, Eliquis. ALLERGIES: PENICILLIN. SOCIAL HISTORY: Lives alone. Denies smoking or alcohol. FAMILY HISTORY: Negative. PHYSICAL EXAMINATION: GENERAL: The patient is awake and alert. VITAL SIGNS: Temperature 97.3, pulse 73 per minute, blood pressure 133/80. SHEENT: Unremarkable. There is no JVD. No pedal edema. LUNGS: Equal bilaterally. No added sounds. CARDIOVASCULAR: S1 and S2 is regular. No murmurs. ABDOMEN: Soft. Bowel sounds are hypoactive. There is a dressing at the site of the surgery. NEUROLOGIC: Nonfocal. MUSCULOSKELETAL: Normal. ASSESSMENT AND PLAN: * Hypertension for which she will continue on Lopressor. * History of right leg DVT. The patient will be monitored. Eliquis will be held. * Status post right inguinal hernia surgery. She will be placed on pain medication and IV fluids. * Advance care planning: The patient is a full code-Time spent was 18 minutes. MD HEMALATHA Rowley/JADE TID: [id number] RECEIPT: [id number] [facility]
[2025-01-15 17:21] VITALS: O2SAT 98
[2025-01-15] MEDS: ONDANSETRON HCL 4 MG/2 ML VIAL IV ONE (19:52)
[2025-01-15] MEDS: HYDROmorphone HCL 2 MG/ML VL/or syr IV PRN (19:54)
[2025-01-15 21:00] VITALS: BP 127/70; PULSE 65; RESP 18; TEMP 97.6; O2SAT 96
[2025-01-16] VITALS (8 sets, daily range): BP systolic 107–134; BP diastolic 46–75; PULSE 54–74; RESP 15–18; TEMP 97.3–97.8; O2SAT 94–98
[2025-01-16 05:59] LABS: Basophils # (auto) 0 10 ^3/uL (0-0.2); Basophils % (auto) 0.2 % (0.0-2.0); Eosinophils # (auto) 0 10 ^3/uL (0-0.8); Hemoglobin 12.1 g/dL (12.2-16.2); Lymphocytes # (auto) 0.7 10 ^3/uL (0.4-5.4); Lymphocytes % (auto) 7.7 % (10.0-50.0); Mean Corpuscular Hemoglobin 31.1 pg (28.0-32.0); Mean Corpuscular Hgb Conc. 33.7 g/dL (32.0-36.0); Mean Corpuscular Volume 92.3 fL (80.0-100.0); Monocytes # (auto) 0.6 10 ^3/uL (0-1.3); Monocytes % (auto) 6.5 % (0.0-12.0); Neutrophils # (auto) 8.3 10 ^3/uL (1.6-8.6); Neutrophils % (auto) 85.6 % (37.0-80.0); Nucleated Red Blood Cells % 0.1 %; Platelet Count (auto) 189 10^3/uL (140-450); Red Cell Distribution Width 14.5 % (11.8-14.3); White Blood Cell 9.7 10^3/uL (4.4-10.8)
[2025-01-16 06:32] LABS: Albumin 3.7 g/dL (3.2-4.8); Alkaline Phosphatase 77 U/L (46-116); Anion Gap 8 (5-15); Aspartate Aminotransferase 13 U/L (<34); BUN/Creatinine Ratio 16.4 (10.0-20.0); Blood Urea Nitrogen 18 mg/dL (9-23); Calcium 9.3 mg/dL (8.7-10.4); Carbon Dioxide 26 mmol/L (20-31); Chloride 105 mmol/L (98-107); Potassium 4.6 mmol/L (3.5-5.1); Sodium 139 mmol/L (136-145); Total Protein 5.8 g/dL (5.7-8.2)
[2025-01-16 06:33] LABS: Alanine Aminotransferase < 9 U/L (7-40); Bilirubin, Total 0.5 mg/dL (0.2-1.0); Glucose 151 mg/dL (74-106)
[2025-01-16] MEDS: METOPROLOL SUCCINATE XL 50 MG TAB PO SCH (09:42)
--- NOTE | 2025-01-16 11:29 | DVHPN2 ---
Progress Note - Dictate Date Seen: Jan 15, 2025 Medical Necessity Reason Pt with a Central, PICC or Fol: Yes The following are medically ne: Isabel Catheter Subjective PT WELL KNOWN TO ME NOW S/P ELECTIVE INGUINAL HERNIA REPAIR PMH; CT WITH CONTRAST WAS ORDERED URGENT CALL FROM RADIOLOGIST STATING 1. Small bowel obstruction secondary to right inguinal hernia. There is fluid and mesenteric edema within the hernia. Hernia incarceration should be excluded clinically. SO PT WAS TOLD TO COME TO THE EMERGENCY ROOM JESUS REPEAT HOWEVER NO EVIDENCE FOR OBSTRUCTION PT STILL WITH ABD PAIN AND SYMPTOMATIC HTN HX OF BREAST CA HX OF TKR GERD HX OF DVT ANEMIA RECURRENT OBSTRUCTIVE PHYSIOLOGY AND FECAL IMPACTION WITH INGUINAL HERNIA vital signs Vital Sign Date Time Temp Pulse Resp B/P (MAP) Pulse Ox O2 Delivery O2 Flow Rate FiO2 01/16/25 09:42 64 133/46 01/16/25 09:00 97.3 15 97 97.3 01/16/25 08:00 Room Air* 0 21 Total Intake and Output 01/15/25 01/15/25 01/16/25 15:00 23:00 07:00 Intake Total 100 ml 0 ml Output Total 700 ml Balance 100 ml -700 ml medications Current Medications Medications Dose Ordered Sig/Robbin Route Start Time Stop Time Status Last Admin Dose Admin Potassium Chloride/Dextrose/ Sod Cl 1,000 ml @ 50 mls/hr Q20H IV 01/15/25 12:30 01/16/25 09:42 50 MLS/HR Levofloxacin/ Dextrose 100 ml @ 100 mls/hr Q48H IV 01/15/25 12:30 Acetaminophen/ Codeine Phosphate 1 tab Q4HP PRN PO 01/15/25 12:30 Nitroglycerin 0.4 mg Q5MINP PRN SL 01/15/25 15:15 Morphine Sulfate 2 mg Q30M PRN IV 01/15/25 15:15 Hydromorphone HCl 0.25 mg Q3HP PRN IV 01/15/25 15:45 01/15/25 19:54 0.25 MG Metoprolol Succinate 25 mg DAILY PO 01/16/25 10:00 01/16/25 09:42 25 MG Labetalol HCl 10 mg Q4HP PRN IV 01/15/25 15:45 laboratory and microbiology Laboratory Tests 01/16/25 05:21 Test 01/16/25 05:21 Range/Units Serum Glucose 151 H 74-106 mg/dL Problem List S/P ELECTIVE INGUINAL HERNIA REPAIR PMH; CT WITH CONTRAST WAS ORDERED URGENT CALL FROM RADIOLOGIST STATING 1. Small bowel obstruction secondary to right inguinal hernia. There is fluid and mesenteric edema within the hernia. Hernia incarceration should be excluded clinically. SO PT WAS TOLD TO COME TO THE EMERGENCY ROOM JESUS REPEAT HOWEVER NO EVIDENCE FOR OBSTRUCTION PT STILL WITH ABD PAIN AND SYMPTOMATIC HTN HX OF BREAST CA HX OF TKR GERD HX OF DVT ANEMIA RECURRENT OBSTRUCTIVE PHYSIOLOGY AND FECAL IMPACTION WITH INGUINAL HERNIA Assessment/Plan S/P HERNIA REPAIR STABLE Plan discussed with: Patient CHRISTIANNE ZEPEDA MD Jan 16, 2025 11:29
--- NOTE | 2025-01-16 11:30 | DVHPN2 ---
Progress Note - Dictate Date Seen: Jan 16, 2025 Medical Necessity Reason Pt with a Central, PICC or Fol: Yes The following are medically ne: Isabel Catheter Subjective PT WELL KNOWN TO ME NOW S/P ELECTIVE INGUINAL HERNIA REPAIR PMH; CT WITH CONTRAST WAS ORDERED URGENT CALL FROM RADIOLOGIST STATING 1. Small bowel obstruction secondary to right inguinal hernia. There is fluid and mesenteric edema within the hernia. Hernia incarceration should be excluded clinically. SO PT WAS TOLD TO COME TO THE EMERGENCY ROOM JESUS REPEAT HOWEVER NO EVIDENCE FOR OBSTRUCTION PT STILL WITH ABD PAIN AND SYMPTOMATIC HTN HX OF BREAST CA HX OF TKR GERD HX OF DVT ANEMIA RECURRENT OBSTRUCTIVE PHYSIOLOGY AND FECAL IMPACTION WITH INGUINAL HERNIA vital signs Vital Sign Date Time Temp Pulse Resp B/P (MAP) Pulse Ox O2 Delivery O2 Flow Rate FiO2 01/16/25 09:42 64 133/46 01/16/25 09:00 97.3 15 97 97.3 01/16/25 08:00 Room Air* 0 21 Total Intake and Output 01/15/25 01/15/25 01/16/25 15:00 23:00 07:00 Intake Total 100 ml 0 ml Output Total 700 ml Balance 100 ml -700 ml medications Current Medications Medications Dose Ordered Sig/Robbin Route Start Time Stop Time Status Last Admin Dose Admin Potassium Chloride/Dextrose/ Sod Cl 1,000 ml @ 50 mls/hr Q20H IV 01/15/25 12:30 01/16/25 09:42 50 MLS/HR Levofloxacin/ Dextrose 100 ml @ 100 mls/hr Q48H IV 01/15/25 12:30 Acetaminophen/ Codeine Phosphate 1 tab Q4HP PRN PO 01/15/25 12:30 Nitroglycerin 0.4 mg Q5MINP PRN SL 01/15/25 15:15 Morphine Sulfate 2 mg Q30M PRN IV 01/15/25 15:15 Hydromorphone HCl 0.25 mg Q3HP PRN IV 01/15/25 15:45 01/15/25 19:54 0.25 MG Metoprolol Succinate 25 mg DAILY PO 01/16/25 10:00 01/16/25 09:42 25 MG Labetalol HCl 10 mg Q4HP PRN IV 01/15/25 15:45 laboratory and microbiology Laboratory Tests 01/16/25 05:21 Test 01/16/25 05:21 Range/Units Serum Glucose 151 H 74-106 mg/dL Problem List S/P ELECTIVE INGUINAL HERNIA REPAIR PMH; CT WITH CONTRAST WAS ORDERED URGENT CALL FROM RADIOLOGIST STATING 1. Small bowel obstruction secondary to right inguinal hernia. There is fluid and mesenteric edema within the hernia. Hernia incarceration should be excluded clinically. SO PT WAS TOLD TO COME TO THE EMERGENCY ROOM JESUS REPEAT HOWEVER NO EVIDENCE FOR OBSTRUCTION PT STILL WITH ABD PAIN AND SYMPTOMATIC HTN HX OF BREAST CA HX OF TKR GERD HX OF DVT ANEMIA RECURRENT OBSTRUCTIVE PHYSIOLOGY AND FECAL IMPACTION WITH INGUINAL HERNIA Assessment/Plan S/P HERNIA REPAIR STABLE H/H STABLE PT EVALUATION WHEN SURGICALLY CLEARED FOR PT Plan discussed with: Patient CHRISTIANNE ZEPEDA MD Jan 16, 2025 11:30
--- NOTE | 2025-01-16 12:05 | DVHPN2 ---
Progress Note Date Seen: Jan 16, 2025 Medical Necessity Reason Pt with a Central, PICC or Fol: Yes The following are medically ne: Isabel Catheter Objective vital signs Vital Sign Date Time Temp Pulse Resp B/P (MAP) Pulse Ox O2 Delivery O2 Flow Rate FiO2 01/16/25 09:42 64 133/46 01/16/25 09:00 97.3 15 97 97.3 01/16/25 08:00 Room Air* 0 21 Total Intake and Output 01/15/25 01/15/25 01/16/25 15:00 23:00 07:00 Intake Total 100 ml 0 ml Output Total 700 ml Balance 100 ml -700 ml medications Current Medications Medications Dose Ordered Sig/Robbin Route Start Time Stop Time Status Last Admin Dose Admin Potassium Chloride/Dextrose/ Sod Cl 1,000 ml @ 50 mls/hr Q20H IV 01/15/25 12:30 01/16/25 09:42 50 MLS/HR Levofloxacin/ Dextrose 100 ml @ 100 mls/hr Q48H IV 01/15/25 12:30 Acetaminophen/ Codeine Phosphate 1 tab Q4HP PRN PO 01/15/25 12:30 Nitroglycerin 0.4 mg Q5MINP PRN SL 01/15/25 15:15 Morphine Sulfate 2 mg Q30M PRN IV 01/15/25 15:15 Hydromorphone HCl 0.25 mg Q3HP PRN IV 01/15/25 15:45 01/15/25 19:54 0.25 MG Metoprolol Succinate 25 mg DAILY PO 01/16/25 10:00 01/16/25 09:42 25 MG Labetalol HCl 10 mg Q4HP PRN IV 01/15/25 15:45 laboratory and microbiology Laboratory Tests 01/16/25 05:21 Test 01/16/25 05:21 Range/Units Serum Glucose 151 H 74-106 mg/dL Problem List/Assessment/Plan Problem List/Assessment/Plan 01/16/25 doing well, no nausea, wound clean and well approximated, slightly ecchymotic, will advance diet and activity, may be discharged tomorrow Plan discussed with: Patient, Daughter SHAE MÁRQUEZ MD Jan 16, 2025 12:05
--- NOTE | 2025-01-16 14:31 | DVHPN2 ---
Progress Note Date Seen: Jan 16, 2025 Medical Necessity Reason Pt with a Central, PICC or Fol: Yes The following are medically ne: Isabel Catheter Subjective Patient reports: No new complaints Review of Systems: HEENT:Normal, CVS:Normal, RESPIRATORY:Normal, GI:Normal, :Normal, MSK:Normal, NEURO:Normal Objective vital signs Vital Sign Date Time Temp Pulse Resp B/P (MAP) Pulse Ox O2 Delivery O2 Flow Rate FiO2 01/16/25 13:00 97.6 62 15 116/67 (83) 97 97.6 01/16/25 08:00 Room Air* 0 21 Total Intake and Output 01/15/25 01/15/25 01/16/25 15:00 23:00 07:00 Intake Total 100 ml 0 ml Output Total 700 ml Balance 100 ml -700 ml medications Current Medications Medications Dose Ordered Sig/Robbin Route Start Time Stop Time Status Last Admin Dose Admin Potassium Chloride/Dextrose/ Sod Cl 1,000 ml @ 50 mls/hr Q20H IV 01/15/25 12:30 01/16/25 09:42 50 MLS/HR Levofloxacin/ Dextrose 100 ml @ 100 mls/hr Q48H IV 01/15/25 12:30 Acetaminophen/ Codeine Phosphate 1 tab Q4HP PRN PO 01/15/25 12:30 Nitroglycerin 0.4 mg Q5MINP PRN SL 01/15/25 15:15 Morphine Sulfate 2 mg Q30M PRN IV 01/15/25 15:15 Hydromorphone HCl 0.25 mg Q3HP PRN IV 01/15/25 15:45 01/15/25 19:54 0.25 MG Metoprolol Succinate 25 mg DAILY PO 01/16/25 10:00 01/16/25 09:42 25 MG Labetalol HCl 10 mg Q4HP PRN IV 01/15/25 15:45 Examination: GENERAL:Normal, HEENT:Normal, NECK:Normal, LUNGS:Normal, CVS:Normal, ABDOMEN:Normal, MSK:Normal, SKIN:Normal, NEURO:Normal, :Normal laboratory and microbiology Laboratory Tests 01/16/25 05:21 Test 01/16/25 05:21 Range/Units Serum Glucose 151 H 74-106 mg/dL Problem List/Assessment/Plan Problem List/Assessment/Plan * Hypertension for which she will continue on Lopressor. * History of right leg DVT: resume eliquis * Status post right inguinal hernia surgery. She will be placed on pain medication and IV fluids. * Advance care planning: The patient is a full code.Time spent was 18 minutes. Plan discussed with: Patient My Orders My Orders Orders - KT BROWN MD Procedure Category Date Status Time Admit ADMIT 01/15/25 Transmitted 15:03 Oxygen By Nasal RT 01/15/25 Transmitted Cannula 15:03 Nitroglycerin PHA 01/15/25 In Process Sublingual (Ntrostat 15:15 Morphine Sulfate PHA 01/15/25 In Process Injection 15:15 Stat Ekg For Chest [facility] 01/15/25 In Process Pain 15:03 Notify Md Of Changes [facility] 01/15/25 In Process From Base 15:03 Distresser For ADDISON 01/15/25 In Process 24 Hours 15:03 Emergency Dysrhythmia ADDISON 01/15/25 In Process Protocol 15:03 Rhythm Strips Once ADDISON 01/15/25 In Process Every Shift 15:03 Hydromorphone PHA 01/15/25 In Process Injection (Dilaudid 15:45 * Cardiology Consult CONS 01/15/25 Transmitted 15:43 Metoprolol Xl PHA 01/16/25 In Process Succinate (Toprol Xl) 10:00 Labetalol Hcl PHA 01/15/25 In Process (Labetalol Hcl) 15:45 Apixaban (Eliquis) PHA 01/16/25 Transmitted 22:00 Pt Request For Service PT 01/16/25 Transmitted 14:28 Basic Metabolic Panel LAB 01/17/25 Verified 06:00 Complete Blood Count LAB 01/17/25 Verified 06:00 Date of Service: Jan 16, 2025 Billing Provider: KT BROWN MD Common Visit Codes: [id number] INP/OBS CARE(HIGH) Secondary Visit Codes: [id number] CARE PLAN 30 MINUTES KT BROWN MD Jan 16, 2025 14:31
[2025-01-16] MEDS ORDERED: APIXABAN 5 MG TAB PO SCH (22:00)
[2025-01-16] MEDS: APIXABAN 5 MG TAB ONE (22:28)
[2025-01-16] MEDS: APIXABAN 5 MG TAB PO ONE (22:29)
[2025-01-17] VITALS (8 sets, daily range): BP systolic 113–151; BP diastolic 65–79; PULSE 58–91; RESP 16–18; TEMP 96.8–98.3; O2SAT 95–98
[2025-01-17 05:41] LABS: Basophils # (auto) 0.1 10 ^3/uL (0-0.2); Basophils % (auto) 0.9 % (0.0-2.0); Eosinophils # (auto) 0.1 10 ^3/uL (0-0.8); Eosinophils % (auto) 0.9 % (0.0-7.0); Hematocrit 35.8 % (36.0-46.0); Hemoglobin 12.2 g/dL (12.2-16.2); Lymphocytes # (auto) 1.3 10 ^3/uL (0.4-5.4); Lymphocytes % (auto) 18.5 % (10.0-50.0); Mean Corpuscular Hemoglobin 31.2 pg (28.0-32.0); Monocytes # (auto) 0.7 10 ^3/uL (0-1.3); Monocytes % (auto) 9.6 % (0.0-12.0); Neutrophils # (auto) 4.9 10 ^3/uL (1.6-8.6); Neutrophils % (auto) 70.1 % (37.0-80.0); Nucleated Red Blood Cells % 0.1 %; Platelet Count (auto) 186 10^3/uL (140-450); Red Blood Cells 3.89 10^6/uL (4.0-5.20); Red Cell Distribution Width 14.7 % (11.8-14.3)
[2025-01-17 05:52] LABS: Anion Gap 8 (5-15); Carbon Dioxide 25 mmol/L (20-31); Chloride 106 mmol/L (98-107); Potassium 4.4 mmol/L (3.5-5.1); Sodium 139 mmol/L (136-145)
[2025-01-17 05:53] LABS: Calcium 9.4 mg/dL (8.7-10.4)
[2025-01-17 05:58] LABS: BUN/Creatinine Ratio 20.4 (10.0-20.0); Blood Urea Nitrogen 22 mg/dL (9-23); Glucose 89 mg/dL (74-106)
[2025-01-17] MEDS: APIXABAN 5 MG TAB PO SCH (09:31)
--- NOTE | 2025-01-17 12:28 | DVHPN2 ---
Reviewed: Care Plan, H&P, Labs, Medications, Previous Orders, Radiology Changes from previous H/P or p: No Changes Objective Vitals Vital Signs Date Time Temp Pulse Resp B/P (MAP) Pulse Ox O2 Delivery O2 Flow Rate FiO2 01/17/25 09:31 78 113/73 01/17/25 09:00 96.8 18 95 96.8 01/17/25 08:00 Room Air* 0 21 Intake/Output Intake and Output 01/17/25 07:00 Intake Total 2058 ml Output Total 650 ml Balance 1408 ml Intake Oral 858 ml IV Total 1200 ml Output Urine Total 650 ml # Bowel Movements 1 Medications Current Medications Medications Dose Ordered Sig/Robbin Route Start Time Stop Time Status Last Admin Dose Admin Levofloxacin/ Dextrose 100 ml @ 100 mls/hr Q48H IV 01/15/25 12:30 01/17/25 11:31 100 MLS/HR Acetaminophen/ Codeine Phosphate 1 tab Q4HP PRN PO 01/15/25 12:30 Nitroglycerin 0.4 mg Q5MINP PRN SL 01/15/25 15:15 Morphine Sulfate 2 mg Q30M PRN IV 01/15/25 15:15 Hydromorphone HCl 0.25 mg Q3HP PRN IV 01/15/25 15:45 01/15/25 19:54 0.25 MG Metoprolol Succinate 25 mg DAILY PO 01/16/25 10:00 01/17/25 09:31 25 MG Labetalol HCl 10 mg Q4HP PRN IV 01/15/25 15:45 Apixaban 5 mg BID PO 01/17/25 10:00 01/17/25 09:31 5 MG Laboratory Results Laboratory Tests 01/17/25 05:25 Chemistry Test 01/17/25 05:25 Calcium Level 9.4 mg/dL (8.7-10.4) Urinalysis Test 01/07/25 11:23 Urine Color Yellow (Yellow) Urine Clarity Clear (Clear) Urine pH 5.0 (5.0-9.0) Urine Specific [place] 1.022 (1.001-1.035) Urine Protein Negative (Negative) Urine Ketones Negative (Negative) Urine Blood Negative /uL (Negative) Urine Nitrite 1+ (Negative) H Urine Bilirubin Negative (Negative) Urine Urobilinogen Normal mg/dL (Negative) Urine Leukocyte Esterase 1+ /uL (Negative) Urine RBC 1 /hpf (0 - 4) Urine Microscopic WBC 13 /HPF (0-5) H Urine Squamous Epithelial Cells Few /hpf (<5) Urine Bacteria Few /hpf (None Seen) H Urine Hyaline Casts Few /lpf (0 - 2) Urine Mucus Few (None Seen) Urine Glucose Normal mg/dL (Normal) Labs and/or images reviewed: Labs reviewed by me, Image(s) reviewed by me Assessment/Plan Assessment/Plan Status post right inguinal hernia surgery pain medications IV fluids Hypertension: Lopressor History of right leg DVT: Eliquis History of breast cancer History of total knee replacement Advanced care planning time 20 minutes Patient is full code Physical therapy ordered Plan discussed with: Patient Date of Service: Jan 17, 2025 Billing Provider: ROME BENNETT MD Common Visit Codes: [id number] INP/OBS CARE(HIGH) ROME BENNETT MD Jan 17, 2025 12:28
--- NOTE | 2025-01-17 13:32 | DVHPN2 ---
Progress Note - Dictate Date Seen: Jan 17, 2025 Medical Necessity Reason Pt with a Central, PICC or Fol: Yes The following are medically ne: Isabel Catheter Subjective PT WELL KNOWN TO ME NOW S/P ELECTIVE INGUINAL HERNIA REPAIR PMH; CT WITH CONTRAST WAS ORDERED URGENT CALL FROM RADIOLOGIST STATING 1. Small bowel obstruction secondary to right inguinal hernia. There is fluid and mesenteric edema within the hernia. Hernia incarceration should be excluded clinically. SO PT WAS TOLD TO COME TO THE EMERGENCY ROOM JESUS REPEAT HOWEVER NO EVIDENCE FOR OBSTRUCTION PT STILL WITH ABD PAIN AND SYMPTOMATIC HTN HX OF BREAST CA HX OF TKR GERD HX OF DVT ANEMIA RECURRENT OBSTRUCTIVE PHYSIOLOGY AND FECAL IMPACTION WITH INGUINAL HERNIA vital signs Vital Sign Date Time Temp Pulse Resp B/P (MAP) Pulse Ox O2 Delivery O2 Flow Rate FiO2 01/17/25 09:31 78 113/73 01/17/25 09:00 96.8 18 95 96.8 01/17/25 08:00 Room Air* 0 21 Total Intake and Output 01/16/25 01/16/25 01/17/25 15:00 23:00 07:00 Intake Total 1200 ml 458 ml 400 ml Output Total 150 ml 500 ml Balance 1200 ml 308 ml -100 ml medications Current Medications Medications Dose Ordered Sig/Robbin Route Start Time Stop Time Status Last Admin Dose Admin Levofloxacin/ Dextrose 100 ml @ 100 mls/hr Q48H IV 01/15/25 12:30 01/17/25 11:31 100 MLS/HR Acetaminophen/ Codeine Phosphate 1 tab Q4HP PRN PO 01/15/25 12:30 Nitroglycerin 0.4 mg Q5MINP PRN SL 01/15/25 15:15 Morphine Sulfate 2 mg Q30M PRN IV 01/15/25 15:15 Hydromorphone HCl 0.25 mg Q3HP PRN IV 01/15/25 15:45 01/15/25 19:54 0.25 MG Metoprolol Succinate 25 mg DAILY PO 01/16/25 10:00 01/17/25 09:31 25 MG Labetalol HCl 10 mg Q4HP PRN IV 01/15/25 15:45 Apixaban 5 mg BID PO 01/17/25 10:00 01/17/25 09:31 5 MG laboratory and microbiology Laboratory Tests 01/17/25 05:25 Test 01/17/25 05:25 Range/Units Serum Glucose 89 74-106 mg/dL Problem List S/P ELECTIVE INGUINAL HERNIA REPAIR PMH; CT WITH CONTRAST WAS ORDERED URGENT CALL FROM RADIOLOGIST STATING 1. Small bowel obstruction secondary to right inguinal hernia. There is fluid and mesenteric edema within the hernia. Hernia incarceration should be excluded clinically. SO PT WAS TOLD TO COME TO THE EMERGENCY ROOM JESUS REPEAT HOWEVER NO EVIDENCE FOR OBSTRUCTION PT STILL WITH ABD PAIN AND SYMPTOMATIC HTN HX OF BREAST CA HX OF TKR GERD HX OF DVT ANEMIA RECURRENT OBSTRUCTIVE PHYSIOLOGY AND FECAL IMPACTION WITH INGUINAL HERNIA Assessment/Plan S/P HERNIA REPAIR STABLE H/H STABLE PT EVALUATION WHEN SURGICALLY CLEARED FOR PT NO DISCHARGE TILL MONDAY START PT Plan discussed with: Patient, Daughter CHRISTIANNE ZEPEDA MD Jan 17, 2025 13:32
[2025-01-17] MEDS: DOCUSATE SOD 100 MG CAP PO SCH (21:23)
[2025-01-18] VITALS (8 sets, daily range): BP systolic 95–134; BP diastolic 57–81; PULSE 62–83; RESP 14–18; TEMP 97.3–98; O2SAT 94–97
--- NOTE | 2025-01-18 11:54 | DVHPN2 ---
Reviewed: Care Plan, H&P, Labs, Medications, Previous Orders, Radiology Changes from previous H/P or p: No Changes Objective Vitals Vital Signs Date Time Temp Pulse Resp B/P (MAP) Pulse Ox O2 Delivery O2 Flow Rate FiO2 01/18/25 09:29 65 134/81 01/18/25 09:00 97.6 18 95 97.6 01/18/25 08:07 Room Air* 0 21 Intake/Output Intake and Output 01/18/25 07:00 Intake Total 1640 ml Output Total 2200 ml Balance -560 ml Intake Oral 1640 ml Output Urine Total 2200 ml # Bowel Movements 1 Medications Current Medications Medications Dose Ordered Sig/Robbin Route Start Time Stop Time Status Last Admin Dose Admin Levofloxacin/ Dextrose 100 ml @ 100 mls/hr Q48H IV 01/15/25 12:30 01/17/25 11:31 100 MLS/HR Acetaminophen/ Codeine Phosphate 1 tab Q4HP PRN PO 01/15/25 12:30 Nitroglycerin 0.4 mg Q5MINP PRN SL 01/15/25 15:15 Morphine Sulfate 2 mg Q30M PRN IV 01/15/25 15:15 Hydromorphone HCl 0.25 mg Q3HP PRN IV 01/15/25 15:45 01/15/25 19:54 0.25 MG Metoprolol Succinate 25 mg DAILY PO 01/16/25 10:00 01/18/25 09:29 25 MG Labetalol HCl 10 mg Q4HP PRN IV 01/15/25 15:45 Apixaban 5 mg BID PO 01/17/25 10:00 01/18/25 09:29 5 MG Docusate Sodium 100 mg BID PO 01/17/25 22:00 01/18/25 09:28 100 MG Laboratory Results Laboratory Tests 01/17/25 05:25 Urinalysis Test 01/07/25 11:23 Urine Color Yellow (Yellow) Urine Clarity Clear (Clear) Urine pH 5.0 (5.0-9.0) Urine Specific [place] 1.022 (1.001-1.035) Urine Protein Negative (Negative) Urine Ketones Negative (Negative) Urine Blood Negative /uL (Negative) Urine Nitrite 1+ (Negative) H Urine Bilirubin Negative (Negative) Urine Urobilinogen Normal mg/dL (Negative) Urine Leukocyte Esterase 1+ /uL (Negative) Urine RBC 1 /hpf (0 - 4) Urine Microscopic WBC 13 /HPF (0-5) H Urine Squamous Epithelial Cells Few /hpf (<5) Urine Bacteria Few /hpf (None Seen) H Urine Hyaline Casts Few /lpf (0 - 2) Urine Mucus Few (None Seen) Urine Glucose Normal mg/dL (Normal) Labs and/or images reviewed: Labs reviewed by me, Image(s) reviewed by me Assessment/Plan Assessment/Plan Status post right inguinal hernia surgery pain medications IV fluids Hypertension: Lopressor History of right leg DVT: Eliquis History of breast cancer History of total knee replacement Patient is full code Physical therapy ordered Plan discussed with: Patient Date of Service: Jan 18, 2025 Billing Provider: ROME BENNETT MD Common Visit Codes: [id number] INP/OBS CARE(HIGH) ROME BENNETT MD Jan 18, 2025 11:54
[2025-01-18] MEDS: POLYETHYLENE GLYCOL 17 GM PWDR PO PRN (14:54)
[2025-01-18] MEDS: levoFLOXacin 250MG 50 ML IV SCH (15:52)
[2025-01-19] VITALS (9 sets, daily range): BP systolic 112–154; BP diastolic 42–79; PULSE 55–72; RESP 14–20; TEMP 96.6–98.1; O2SAT 95–99
--- NOTE | 2025-01-19 12:17 | DVHPN2 ---
Reviewed: Care Plan, H&P, Labs, Medications, Previous Orders, Radiology Changes from previous H/P or p: No Changes Objective Vitals Vital Signs Date Time Temp Pulse Resp B/P (MAP) Pulse Ox O2 Delivery O2 Flow Rate FiO2 01/19/25 10:53 67 141/78 01/19/25 09:00 96.9 18 96 96.9 01/18/25 20:00 Room Air* 0 21 Intake/Output Intake and Output 01/19/25 07:00 Intake Total 1270 ml Output Total 900 ml Balance 370 ml Intake Oral 1220 ml IV Total 50 ml Output Urine Total 900 ml # Voids 3 Medications Current Medications Medications Dose Ordered Sig/Robbin Route Start Time Stop Time Status Last Admin Dose Admin Acetaminophen/ Codeine Phosphate 1 tab Q4HP PRN PO 01/15/25 12:30 Nitroglycerin 0.4 mg Q5MINP PRN SL 01/15/25 15:15 Morphine Sulfate 2 mg Q30M PRN IV 01/15/25 15:15 Hydromorphone HCl 0.25 mg Q3HP PRN IV 01/15/25 15:45 01/15/25 19:54 0.25 MG Metoprolol Succinate 25 mg DAILY PO 01/16/25 10:00 01/19/25 10:53 25 MG Labetalol HCl 10 mg Q4HP PRN IV 01/15/25 15:45 Apixaban 5 mg BID PO 01/17/25 10:00 01/19/25 10:52 5 MG Docusate Sodium 100 mg BID PO 01/17/25 22:00 01/19/25 10:51 100 MG Polyethylene Glycol 17 gm DAILYPRN PRN PO 01/18/25 13:00 01/18/25 14:54 17 GM Levofloxacin 50 ml @ 50 mls/hr DAILY IV 01/18/25 15:26 01/19/25 10:54 50 MLS/HR Laboratory Results Laboratory Tests 01/17/25 05:25 Urinalysis Test 01/07/25 11:23 Urine Color Yellow (Yellow) Urine Clarity Clear (Clear) Urine pH 5.0 (5.0-9.0) Urine Specific [place] 1.022 (1.001-1.035) Urine Protein Negative (Negative) Urine Ketones Negative (Negative) Urine Blood Negative /uL (Negative) Urine Nitrite 1+ (Negative) H Urine Bilirubin Negative (Negative) Urine Urobilinogen Normal mg/dL (Negative) Urine Leukocyte Esterase 1+ /uL (Negative) Urine RBC 1 /hpf (0 - 4) Urine Microscopic WBC 13 /HPF (0-5) H Urine Squamous Epithelial Cells Few /hpf (<5) Urine Bacteria Few /hpf (None Seen) H Urine Hyaline Casts Few /lpf (0 - 2) Urine Mucus Few (None Seen) Urine Glucose Normal mg/dL (Normal) Assessment/Plan Assessment/Plan Status post right inguinal hernia surgery pain medications IV fluids Hypertension: Lopressor History of right leg DVT: Eliquis History of breast cancer History of total knee replacement Patient is full code Physical therapy ordered Per patient Dr. Colmenares is going to discharged her home on Monday Plan discussed with: Patient My Orders Orders - ROME BENNETT MD Procedure Category Date Status Time Polyethylene Glycol PHA 01/18/25 In Process 17g Powder (Miralax 13:00 Date of Service: Jan 19, 2025 Billing Provider: ROME BENNETT MD Common Visit Codes: [id number] INP/OBS CARE(HIGH) ROME BENNETT MD Jan 19, 2025 12:17
[2025-01-19] MEDS: ACETAMINOPHEN/CODEINE#3 (300/30mg) TAB PO PRN (21:22)
[2025-01-20 01:00] VITALS: BP 105/57; PULSE 66; RESP 18; TEMP 97.9; O2SAT 97
[2025-01-20 05:00] VITALS: BP 120/59; PULSE 62; RESP 18; TEMP 97.7; O2SAT 96
[2025-01-20 08:00] VITALS: PULSE 66; RESP 18; O2SAT 96
--- NOTE | 2025-01-20 11:33 | DVHDS2 ---
Discharge Summary Date of Admission Jan 15, 2025 at 15:03 Date of Discharge: Jan 20, 2025 Labs/Diagnostic Data: Laboratory Results Test 01/17/25 05:25 01/16/25 05:21 01/07/25 11:23 White Blood Count 7.0 10^3/uL (4.4-10.8) Red Blood Count 3.89 10^6/uL (4.0-5.20) Hemoglobin 12.2 g/dL (12.2-16.2) Hematocrit 35.8 % (36.0-46.0) Mean Corpuscular Volume 92.0 fL (80.0-100.0) Mean Corpuscular Hemoglobin 31.2 pg (28.0-32.0) Mean Corpuscular Hemoglobin Concent 34.0 g/dL (32.0-36.0) Red Cell Distribution Width 14.7 % (11.8-14.3) Platelet Count 186 10^3/uL (140-450) Mean Platelet Volume 8.2 fL (6.9-10.8) Neutrophils (%) (Auto) 70.1 % (37.0-80.0) Lymphocytes (%) (Auto) 18.5 % (10.0-50.0) Monocytes (%) (Auto) 9.6 % (0.0-12.0) Eosinophils (%) (Auto) 0.9 % (0.0-7.0) Basophils (%) (Auto) 0.9 % (0.0-2.0) Neutrophils # (Auto) 4.9 10 ^3/uL (1.6-8.6) Lymphocytes # (Auto) 1.3 10 ^3/uL (0.4-5.4) Monocytes # (Auto) 0.7 10 ^3/uL (0-1.3) Eosinophils # (Auto) 0.1 10 ^3/uL (0-0.8) Basophils # (Auto) 0.1 10 ^3/uL (0-0.2) Nucleated Red Blood Cells 0.1 % Sodium Level 139 mmol/L (136-145) Potassium Level 4.4 mmol/L (3.5-5.1) Chloride Level 106 mmol/L (98-107) Carbon Dioxide Level 25 mmol/L (20-31) Anion Gap 8 (5-15) Blood Urea Nitrogen 22 mg/dL (9-23) Creatinine 1.08 mg/dL (0.550-1.02) Glomerular Filtration Rate Calc 49 mL/min (>90) BUN/Creatinine Ratio 20.4 (10.0-20.0) Serum Glucose 89 mg/dL (74-106) Calcium Level 9.4 mg/dL (8.7-10.4) Total Bilirubin 0.5 mg/dL (0.2-1.0) Aspartate Amino Transferase (AST) 13 U/L (<34) Alanine Aminotransferase (ALT) < 9 U/L (7-40) Alkaline Phosphatase 77 U/L (46-116) Total Protein 5.8 g/dL (5.7-8.2) Albumin 3.7 g/dL (3.2-4.8) Prothrombin Time 10.8 sec (9.3-11.8) Prothrombin Time INR 1.02 (0.9-1.15) Activated Partial Thromboplast Time 26.5 SEC (24.5-34.5) Urine Color Yellow (Yellow) Urine Clarity Clear (Clear) Urine pH 5.0 (5.0-9.0) Urine Specific [place] 1.022 (1.001-1.035) Urine Protein Negative (Negative) Urine Ketones Negative (Negative) Urine Blood Negative /uL (Negative) Urine Nitrite 1+ (Negative) Urine Bilirubin Negative (Negative) Urine Urobilinogen Normal mg/dL (Negative) Urine Leukocyte Esterase 1+ /uL (Negative) Urine RBC 1 /hpf (0 - 4) Urine Microscopic WBC 13 /HPF (0-5) Urine Squamous Epithelial Cells Few /hpf (<5) Urine Bacteria Few /hpf (None Seen) Urine Hyaline Casts Few /lpf (0 - 2) Urine Mucus Few (None Seen) Urine Glucose Normal mg/dL (Normal) Other Laboratory Tests 01/17/25 05:25 Brief Hx & Hospital Course: see dictated note Condition at Discharge: Fair Final Diagnosis/Problems List inguinal hernia Discharge Disposition: Home with Health Services Discharge Instruct/Medications Diet: Regular Activity: No Restrictions, As Tolerated Follow Up/Referral: fu with dr Kim in 1 wk Medications: resume home meds script to pharmacy Discharge Statement: "Patient was advised to return to the ER or call 911 if any headaches, dizziness, shortness of breath, chest pain, abdominal pain, bleeding, fevers, or worsening of medical condition. Patient was counseled about treatment plan, medications, possible side effects, patientverbalized understanding. All questions were answered to the best of my ability. This discharge took greater then 30 minutes in planning, reviewing documentation, counseling the patient, and discussing with other team members." ASSESSMENT ASSESSMENT Assessment inguinal hernia Date of Service: Jan 20, 2025 Billing Provider: KT BROWN MD Common Visit Codes: 85223-BRT/OBS DISCH DAY >30min KT BROWN MD Jan 20, 2025 11:33
[2025-01-20] MEDS ORDERED: HYDR1TAB97 PO ×3 (11:35→14:25)
[2025-01-20] MEDS ORDERED: HYDR-4902 PO (11:40)
--- NOTE | 2025-01-20 11:55 | DVHDS ---
DATE OF DISCHARGE: 01/20/2025 HISTORY OF PRESENT ILLNESS: The patient is an 89-year-old lady who was admitted after she underwent surgery for repair of right inguinal hernia. The patient has history of DVT of the right leg, hypertension, and previous breast cancer. HOSPITAL COURSE: The patient did well postoperatively. She was seen in Cardiology consult by Dr. Colmenares. The patient currently is doing well and has been ambulating with physical therapy. She has had bowel activity. The patient will be discharged home to resume her home medication as well as to have home health for physical therapy as well as [place] [facility] for pain. She will follow up with the surgery and Dr. Colmenares. FINAL DIAGNOSES: Therefore, * Hypertension. * History of right leg DVT. * CKD stage III. * Status post right inguinal hernia repair. Time spent in discharge planning and review of plan with the patient, daughter, resident services manager and nursing was 38 minutes. MD HEMALATHA Rowley/ADDISON TID: [id number] RECEIPT: [id number]
--- NOTE | 2025-01-20 11:56 | DVHPN2 ---
Progress Note - Dictate Date Seen: Jan 19, 2025 Medical Necessity Reason Pt with a Central, PICC or Fol: Yes The following are medically ne: Isabel Catheter Subjective PT WELL KNOWN TO ME NOW S/P ELECTIVE INGUINAL HERNIA REPAIR PMH; CT WITH CONTRAST WAS ORDERED URGENT CALL FROM RADIOLOGIST STATING 1. Small bowel obstruction secondary to right inguinal hernia. There is fluid and mesenteric edema within the hernia. Hernia incarceration should be excluded clinically. SO PT WAS TOLD TO COME TO THE EMERGENCY ROOM JESUS REPEAT HOWEVER NO EVIDENCE FOR OBSTRUCTION PT STILL WITH ABD PAIN AND SYMPTOMATIC HTN HX OF BREAST CA HX OF TKR GERD HX OF DVT ANEMIA RECURRENT OBSTRUCTIVE PHYSIOLOGY AND FECAL IMPACTION WITH INGUINAL HERNIA vital signs Vital Sign Date Time Temp Pulse Resp B/P (MAP) Pulse Ox O2 Delivery O2 Flow Rate FiO2 01/20/25 05:00 97.7 62 18 120/59 (79) 96 97.7 01/19/25 20:00 Room Air* 0 21 Total Intake and Output 01/19/25 01/19/25 01/20/25 15:00 23:00 07:00 Intake Total 240 ml 480 ml 600 ml Output Total 1700 ml 450 ml 400 ml Balance -1460 ml 30 ml 200 ml medications Current Medications Medications Dose Ordered Sig/Robbin Route Start Time Stop Time Status Last Admin Dose Admin Acetaminophen/ Codeine Phosphate 1 tab Q4HP PRN PO 01/15/25 12:30 01/19/25 21:22 1 TAB Nitroglycerin 0.4 mg Q5MINP PRN SL 01/15/25 15:15 Morphine Sulfate 2 mg Q30M PRN IV 01/15/25 15:15 Hydromorphone HCl 0.25 mg Q3HP PRN IV 01/15/25 15:45 01/15/25 19:54 0.25 MG Metoprolol Succinate 25 mg DAILY PO 01/16/25 10:00 01/19/25 10:53 25 MG Labetalol HCl 10 mg Q4HP PRN IV 01/15/25 15:45 Apixaban 5 mg BID PO 01/17/25 10:00 01/20/25 10:34 5 MG Docusate Sodium 100 mg BID PO 01/17/25 22:00 01/20/25 10:33 100 MG Polyethylene Glycol 17 gm DAILYPRN PRN PO 01/18/25 13:00 01/18/25 14:54 17 GM Levofloxacin 50 ml @ 50 mls/hr DAILY IV 01/18/25 15:26 01/20/25 10:37 50 MLS/HR laboratory and microbiology Laboratory Tests 01/17/25 05:25 Test 01/17/25 05:25 Range/Units Serum Glucose 89 74-106 mg/dL Problem List S/P ELECTIVE INGUINAL HERNIA REPAIR PMH; CT WITH CONTRAST WAS ORDERED URGENT CALL FROM RADIOLOGIST STATING 1. Small bowel obstruction secondary to right inguinal hernia. There is fluid and mesenteric edema within the hernia. Hernia incarceration should be excluded clinically. SO PT WAS TOLD TO COME TO THE EMERGENCY ROOM JESUS REPEAT HOWEVER NO EVIDENCE FOR OBSTRUCTION PT STILL WITH ABD PAIN AND SYMPTOMATIC HTN HX OF BREAST CA HX OF TKR GERD HX OF DVT ANEMIA RECURRENT OBSTRUCTIVE PHYSIOLOGY AND FECAL IMPACTION WITH INGUINAL HERNIA Assessment/Plan S/P HERNIA REPAIR STABLE H/H STABLE PT EVALUATION WHEN SURGICALLY CLEARED FOR PT NO DISCHARGE TILL MONDAY START PT November WITH HOME HEALTH/ VALDE Plan discussed with: Patient CHRISTIANNE ZEPEDA MD Jan 20, 2025 11:56
--- NOTE | 2025-01-20 14:04 | DVHPN2 ---
Progress Note Date Seen: Jan 20, 2025 Medical Necessity Reason Pt with a Central, PICC or Fol: Yes The following are medically ne: Isabel Catheter Objective vital signs Vital Sign Date Time Temp Pulse Resp B/P (MAP) Pulse Ox O2 Delivery O2 Flow Rate FiO2 01/20/25 05:00 97.7 62 18 120/59 (79) 96 97.7 01/19/25 20:00 Room Air* 0 21 Total Intake and Output 01/19/25 01/19/25 01/20/25 15:00 23:00 07:00 Intake Total 240 ml 480 ml 600 ml Output Total 1700 ml 450 ml 400 ml Balance -1460 ml 30 ml 200 ml medications Current Medications Medications Dose Ordered Sig/Robbin Route Start Time Stop Time Status Last Admin Dose Admin Acetaminophen/ Codeine Phosphate 1 tab Q4HP PRN PO 01/15/25 12:30 01/19/25 21:22 1 TAB Nitroglycerin 0.4 mg Q5MINP PRN SL 01/15/25 15:15 Morphine Sulfate 2 mg Q30M PRN IV 01/15/25 15:15 Hydromorphone HCl 0.25 mg Q3HP PRN IV 01/15/25 15:45 01/15/25 19:54 0.25 MG Metoprolol Succinate 25 mg DAILY PO 01/16/25 10:00 01/19/25 10:53 25 MG Labetalol HCl 10 mg Q4HP PRN IV 01/15/25 15:45 Apixaban 5 mg BID PO 01/17/25 10:00 01/20/25 10:34 5 MG Docusate Sodium 100 mg BID PO 01/17/25 22:00 01/20/25 10:33 100 MG Polyethylene Glycol 17 gm DAILYPRN PRN PO 01/18/25 13:00 01/18/25 14:54 17 GM Levofloxacin 50 ml @ 50 mls/hr DAILY IV 01/18/25 15:26 01/20/25 10:37 50 MLS/HR laboratory and microbiology Laboratory Tests 01/17/25 05:25 Test 01/17/25 05:25 Range/Units Serum Glucose 89 74-106 mg/dL Problem List/Assessment/Plan Problem List/Assessment/Plan 01/16/25 doing well, no nausea, wound clean and well approximated, slightly ecchymotic, will advance diet and activity, may be discharged tomorrow 01/20/25 DOING WELL ,WOUND OK, CLEARED FOR DISCHARGE,INSTRUCTIONS GIVEN Plan discussed with: Patient SHAE MÁRQUEZ MD Jan 20, 2025 14:04
[2025-01-20 14:52] VITALS: PULSE 67
== END 2025-01-20 16:30 | disposition home health service (06) | DRG 352 ==
LOC: SUR 07:56 → OVERFLOW 15:03 → TELE-WESTW 17:00 → WEST WING 01-16 23:51
PROVIDERS: ADMIT Internal Medicine; ATTEND Internal Medicine
PROC: 0YQ50ZZ Repair Right Inguinal Region, Open Approach (ICD-10-PCS; principal; 2025-01-15 11:23)
DX: K40.30 Unilateral inguinal hernia, with obstruction, without gangrene, not specified as recurrent (principal); K21.9 Gastro-esophageal reflux disease without esophagitis; K56.41 Fecal impaction; D64.9 Anemia, unspecified; N18.30 Chronic kidney disease, stage 3 unspecified; Z96.651 Presence of right artificial knee joint; Z96.643 Presence of artificial hip joint, bilateral; I12.9 Hypertensive chronic kidney disease with stage 1 through stage 4 chronic kidney disease, or unspecified chronic kidney disease; Z88.0 Allergy status to penicillin; Z86.718 Personal history of other venous thrombosis and embolism; Z85.3 Personal history of malignant neoplasm of breast; Z79.899 Other long term (current) drug therapy
CPT/HCPCS: 36415; 80048; 80053; 81001; 85025; 85610; 85730; 86850; 86900; 86901; 97110; 97116; 97163; 97530; G0378; J0690; J1100; J1956; J2405; J2704; J3490

== ENCOUNTER 2025-02-01 14:59 | Emergency (ER) | payer MEDICARE, OTHER ==
[~2025-02-01] VITALS: Ht 167.6 cm; Wt 82.7 kg
[~2025-02-01 14:59] MED LIST changes: +HYDR1TAB97 PO
--- NOTE | 2025-02-01 15:25 | ECG ---
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
[2025-02-01 15:51] LABS: Hematocrit 36.2 % (36.0-46.0); Hemoglobin 12.2 g/dL (12.2-16.2); Mean Corpuscular Hemoglobin 31.0 pg (28.0-32.0); Mean Corpuscular Volume 91.7 fL (80.0-100.0); Nucleated Red Blood Cells % 0.1 %
--- NOTE | 2025-02-01 15:53 | DVH ---
CHEST RADIOGRAPH Indication: weak Technique: Single frontal view of the chest was obtained COMPARISON: None FINDINGS: Lines and Tubes: None Lungs: Increased interstitial prominence Pleura: No effusion. No pneumothorax. Cardiomediastinal contours: Unremarkable Bones: Unremarkable IMPRESSION: Possible viral pneumonia or mild pulmonary vascular congestion
[2025-02-01 16:07] LABS: Alanine Aminotransferase 11 U/L (7-40); Albumin 4.0 g/dL (3.2-4.8); Alkaline Phosphatase 110 U/L (46-116); Anion Gap 10 (5-15); BUN/Creatinine Ratio 14.7 (10.0-20.0); Bilirubin, Total 1.0 mg/dL (0.2-1.0); Blood Urea Nitrogen 17 mg/dL (9-23); Calcium 8.9 mg/dL (8.7-10.4); Carbon Dioxide 25 mmol/L (20-31); Chloride 103 mmol/L (98-107); Potassium 3.8 mmol/L (3.5-5.1); Sodium 138 mmol/L (136-145); Total Protein 6.3 g/dL (5.7-8.2)
[2025-02-01 16:12] LABS: Glucose 115 mg/dL (74-106)
--- NOTE | 2025-02-01 16:24 | ED.PDOC ---
History of Present Illness HPI Comments SHOEMAKER: GENERALIZED WEAKNESS, NAUSEA HPI: Poor Historian. Past Medical History: Past Surgical History: HPI: 89y F who presents to the ED for chief complaint of generalized weakness - per pt daughter, pt lives by herself and pt daughter called her this AM and pt did not respond and went to check on pt - pt daughter noted pt was in bed, under her blanket with noted chills and fever with associated weakness and nausea - pt was brought to the ED for further evaluation - pt states she has had R inguinal hernia surgery on 01/15 and has been on ant ibiotics since - pt in the ED, with noted stable vitals including temp of 97.1F, rr 12, BP 118/68 and 94% 02 sat on room air - pt in wheelchair but is [id number] Past Medical History: DVT, HTN, Past Surgical History: R inguinal hernia Social History: Denies ETOH, smoking, and drug use. Medications: eliquis Allergies: denies REVIEW OF SYSTEMS: CONSTITUTIONAL: Denies acute: fever, diaphoresis, chills, HEAD: Denies acute: headache, photophobia Eyes: Denies acute: Double vision, vision loss, eye pain, eye discharge. EARS: Denies acute: tinnitus, hearing loss, ear discharge, ear pain, THROAT: Denies acute: sore throat, swelling, difficulty swallowing , pain with swallowing, change in voice. NECK: Denies acute: neck pain, neck swelling, stiff neck. HEART: Denies acute : chest pain, palpitations, LUNGS: Denies acute: SOB, wheezing, cough, hemoptysis ABDOMEN: Denies acute: abdominal pain, , Vomiting, diarrhea, melena , hematemesis, hematochezia SKIN: Denies acute: rash, redness, lesions, itchiness. EXTREMITIES: Denies acute: calf pain, numbness, tingling, weakness, denies pain in extremity. Denies acute: Low back pain. Neuro: Denies acute: focal neurological deficit, motor or sensory focal neurological deficit, tremors, seizure like activity, confusion, dizziness, change in mental status, loss of bowel or bladder function, cauda equina like symptoms. : Denies acute: dysuria, hematuria, flank pain, increase in urinary frequency. PSYCH: Denies acute: hallucination, suicidal ideation, homicidal ideation. FEMALE: Denies acute: abnormal vaginal bleeding, foul odor, unusual discharge. PHYSICAL EXAM: General: -----mild---acute distress, awake and alert. Head: normocephalic, atraumatic. Neck: supple, trachea is midline, no swelling. Throat: Normal phonation. Eyes:, no erythema, no purulent discharge, no proptosis, no icterus. Heart: regular rate, regular rhythm, no significant murmur appreciated. Lungs: no apparent respiratory distress, Able to speak in full sentences. No wheezing, no rhonchi, no crackles. No stridors Clear to auscultation bilaterally. Abdomen: non tender to palpation, non distended, soft, no guarding, no rebound, + bowel sounds. Evaluation of right groin. Patient has a wound care nurse that comes every day. The area is nontender to palpation. Wound dressing is in place. Patient has no complaints as far as her surgical wound. Neuro: Awake, Alert, oriented to name, self, situation, follows commands GCS=15. Speech is normal. Skin: no petechia, no purpura, no cyanosis, non-pale, not jaundice. Lower extremities: --trace bilateral- Pitting edema no deformity, no focal swelling, no calf TTP. Makes eye contact. moves all four extremities. Face: no apparent facial droop. ED COURSE: DISCLAIMER: This medical document was created using an electronic medical record system with voice recognition software and computerized dictation system. Although this document has been carefully reviewed, there might still be some phonetic and typographical errors. Occasional wrong-word or "sound-alike" substitutions may have occurred due to the inherent limitations of voice recognition software. These areas are purely typographical due to imperfections of the software programs and do not reflect any compromise in the patient's medical care. Please read the chart carefully and recognize, using context, where these substitutions have occurred. Chief Complaint: General Weakness Time Seen by MD: 15:23 Reviewed Notes: Allergies Allergies: Coded Allergies: Penicillins (Unverified Adverse Reaction, Unknown, unknown , 01/07/25) Home Meds Active Scripts Oseltamivir Phosphate (Tamiflu) 75 Mg Cap, 1 CAP PO BID for 5 Days, #10 CAP Prov:JOSE ENRIQUE CAMACHO DO 02/01/25 Nitrofurantoin Monohydrate Mac (Macrobid) 100 Mg Cap, 100 MG PO BID for 7 Days, #14 CAP Prov:JOSE ENRIQUE CAMACHO DO 02/01/25 Hydrocodone-Acetaminophen (Hydrocodone/Acetaminophen 5-325 mg) 1 Tab Tab, 1 TAB PO TIDP PRN for 6 Days, #18 TAB Prov:KT BROWN MD 01/20/25 Reported Medications Cranberry (CRANBERRY) 400 Mg Tab, 400 MG PO DAILY, TAB 01/07/25 Potassium Chloride (POTASSIUM CHLORIDE CR) 10 Meq Tb, 20 MEQ PO DAILY, TAB 01/07/25 Polyethylene Glycol 3350 (Miralax) 17 Gm Pow, 17 GM PO DAILY, POW 01/07/25 Probiotic Product (PROBIOTIC) Tab, 1 TAB OR DAILY, TAB 01/07/25 Apixaban Base (ELIQUIS) 5 Mg Tab, 5 MG PO BID, TAB 01/07/25 Red Yeast Rice Extract (Red Yeast Rice) 300 Mg Cap, 1200 MG PO DAILY, CAP 01/07/25 Cholecalciferol (D3) 25 Mcg Chw, 25 MCG PO DAILY, TAB.CHEW 01/07/25 Furosemide (Lasix) 40 Mg Tab, 40 MG PO PRN, TAB 01/07/25 Metoprolol Succinate (Metoprolol Succinate Er) 25 Mg Tab, 1 TAB PO DAILY 09/19/23 Information Source: Patient, Relative Mode of Arrival: Wheelchair Past Medical History PAST MEDICAL HISTORY: Cancer Surgical History: Appendectomy, Hysterectomy, Denies all surgeries 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 Was a procedure done?: No X-Ray, Labs, Meds, VS Vital Signs Date Time Temp Pulse Resp B/P (MAP) Pulse Ox O2 Delivery O2 Flow Rate FiO2 02/01/25 21:03 98.0 70 20 122/68 (86) 96 98.0 02/01/25 17:08 98.2 76 18 117/62 (80) 95 98.2 02/01/25 17:08 74 18 95 Room Air 02/01/25 15:23 85 02/01/25 15:20 98.3 91 18 133/65 (87) 96 98.3 02/01/25 15:00 97.1 97 12 118/68 (85) 94 97.1 Lab Test 02/01/25 19:37 02/01/25 15:54 02/01/25 15:33 Range/Units Influenza Type A Antigen Negative Negative Influenza Type B Antigen Positive Negative SARS-CoV-2 Antigen (Rapid) Negative NEGATIVE Urine Color Yellow Yellow Urine Clarity Turbid H Clear Urine pH 5.0 5.0-9.0 Urine Specific [place] 1.016 1.001-1.035 Urine Protein Trace H Negative Urine Ketones Negative Negative Urine Blood 1+ H Negative /uL Urine Nitrite 2+ H Negative Urine Bilirubin Negative Negative Urine Urobilinogen Normal Negative mg/dL Urine Leukocyte Esterase 3+ Negative /uL Urine RBC 10 0 - 4 /hpf Urine Microscopic WBC 325 H 0-5 /HPF Urine Squamous Epithelial Cells Few <5 /hpf Urine Bacteria Few H None Seen /hpf Urine Mucus Few None Seen Urine Glucose Normal Normal mg/dL White Blood Count 9.9 4.4-10.8 10^3/uL Red Blood Count 3.94 L 4.0-5.20 10^6/uL Hemoglobin 12.2 12.2-16.2 g/dL Hematocrit 36.2 36.0-46.0 % Mean Corpuscular Volume 91.7 80.0-100.0 fL Mean Corpuscular Hemoglobin 31.0 28.0-32.0 pg Mean Corpuscular Hemoglobin Concent 33.8 32.0-36.0 g/dL Red Cell Distribution Width 14.2 11.8-14.3 % Platelet Count 219 140-450 10^3/uL Mean Platelet Volume 8.1 6.9-10.8 fL Neutrophils (%) (Auto) 86.0 H 37.0-80.0 % Lymphocytes (%) (Auto) 4.5 L 10.0-50.0 % Monocytes (%) (Auto) 8.2 0.0-12.0 % Eosinophils (%) (Auto) 0.2 0.0-7.0 % Basophils (%) (Auto) 1.1 0.0-2.0 % Neutrophils # (Auto) 8.5 1.6-8.6 10 ^3/uL Lymphocytes # (Auto) 0.4 0.4-5.4 10 ^3/uL Monocytes # (Auto) 0.8 0-1.3 10 ^3/uL Eosinophils # (Auto) 0 0-0.8 10 ^3/uL Basophils # (Auto) 0.1 0-0.2 10 ^3/uL Nucleated Red Blood Cells 0.1 % Sodium Level 138 136-145 mmol/L Potassium Level 3.8 3.5-5.1 mmol/L Chloride Level 103 98-107 mmol/L Carbon Dioxide Level 25 20-31 mmol/L Anion Gap 10 5-15 Blood Urea Nitrogen 17 9-23 mg/dL Creatinine 1.16 H 0.550-1.02 mg/dL Glomerular Filtration Rate Calc 45 >90 mL/min BUN/Creatinine Ratio 14.7 10.0-20.0 Serum Glucose 115 H 74-106 mg/dL Lactic Acid Level 1.5 0.4-2.0 mmol/L Calcium Level 8.9 8.7-10.4 mg/dL Total Bilirubin 1.0 0.2-1.0 mg/dL Aspartate Amino Transferase (AST) 20 13-40 U/L Alanine Aminotransferase (ALT) 11 7-40 U/L Alkaline Phosphatase 110 46-116 U/L Troponin I High Sensitivity 7 </=34 ng/L B-Type Natriuretic Peptide 197.37 0-100 pg/mL Total Protein 6.3 5.7-8.2 g/dL Albumin 4.0 3.2-4.8 g/dL Current Medications Medications (Trade) Dose Ordered Sig/Robbin Route Start Time Stop Time Status Last Admin Ceftriaxone Sodium 50 ml @ 100 mls/hr ONCE ONCE IV 02/01/25 19:30 02/01/25 19:59 DC 02/01/25 20:[address] [address] Ph: [phone] DIAGNOSTIC IMAGING Diagnostic Imaging Report : [id number] Signed PATIENT: GRISELDA BOLANDACCT: [id number] UNIT: [id number] : 1935 LOC: ER ROOM / BED: / AGE / SEX: 89 / F ADM STATUS: REG ER SERVICE 1523 ORDERING PHYSICIAN: JOSE ENRIQUE CAMACHO DO PROCEDURE(s): CXRP - CHEST PORTABLE REASON: weak ORDER NUMBER(s): [id number], ACCESSION NUMBER(s): [id number] CHEST RADIOGRAPH Indication: weak Technique: Single frontal view of the chest was obtained COMPARISON: None FINDINGS: Lines and Tubes: None Lungs: Increased interstitial prominence Pleura: No effusion. No pneumothorax. Cardiomediastinal contours: Unremarkable Bones: Unremarkable IMPRESSION: Possible viral pneumonia or mild pulmonary vascular congestion ATED BY: TRIP FORTE MD DICTATED DATE/TIME: 02/01/251549 SIGNED BY: TRIP FORTE MD SIGNED DATE/TIME: 02/01/251549 CC: Patient Education/Counseling: Diagnosis, Treatment Family Education/Counseling: Diagnosis, Treatment SEPSIS Sepsis Screen Date sepsis recognized/suspect: Feb 01, 2025 Time Sepsis recognized/suspect: 151 Recent Procedure: No On Antibiotic Therapy: No Respiratory Rate >20: No Heart Rate >90: Yes Temp<36 C (96.8 F) or >38.3 C: No SBP <90 or MAP <65 mmHG: No New Acute Mental Status Change: No Is the patient on CPAP, BIPAP,: No Physician Orders Artificial Cherry Maker (02/01/25 ) Chest Portable (02/01/25 15:23) Blood Culture (02/01/25 15:23) Vital Signs Date Time Temp Pulse Resp B/P (MAP) Pulse Ox O2 Delivery O2 Flow Rate FiO2 02/01/25 21:03 98.0 70 20 122/68 (86) 96 98.0 02/01/25 17:08 98.2 76 18 117/62 (80) 95 98.2 02/01/25 17:08 74 18 95 Room Air 02/01/25 15:23 85 02/01/25 15:20 98.3 91 18 133/65 (87) 96 98.3 02/01/25 15:00 97.1 97 12 118/68 (85) 94 97.1 Laboratory Tests Test 02/01/25 15:33 Lactic Acid Level 1.5 mmol/L (0.4-2.0) White Blood Count 9.9 10^3/uL (4.4-10.8) Medications Medications Dose Ordered Sig/Robbin Route Start Time Stop Time Status Last Admin Dose Admin Ceftriaxone Sodium 50 ml @ 100 mls/hr ONCE ONCE IV 02/01/25 19:30 02/01/25 19:59 DC 02/01/25 20:25 Departure 1 Departure Time of Disposition: 19:21 Impression: Primary Impression: UTI (urinary tract infection) Additional Impressions: Generalized weakness Influenza B Disposition: HOME / SELF CARE / HOMELESS Condition: Stable Additional Instructions: Additional instructions: You MUST follow-up with your primary care/family doctor in 1 to 2 days. If you are unable to see your primary care/family doctor, please return to our emergency room for re-assessment and re-evaluation in 1 to 2 days. Return to the emergency room here in our facility or to the nearest ER [facility] if your symptoms change or worsen. CONSULTATIONS: you MUST Follow-up for consultation as soon as possible with: --neurology and cardiology as needed. Please call for appointment. You MUST call the consultants office yourself to make an appointment. You may need to arrange that through your insurance and/or your primary/family doctor. If you are unable to see the applications consultant in 1 to 2 days, you must return to our emergency room (or any other ER of your choice) for re-assessment and re- evaluation. Adequate fluid hydration. You are contagious. Please exercise good hygiene and wear a mask. [place] [address] Ph: [phone] DIAGNOSTIC IMAGING Diagnostic Imaging Report : [id number] Signed PATIENT: GRISELDA BOLAND ACCT: [id number] UNIT: [id number] : 1935 LOC: ER ROOM / BED: / AGE / SEX: 89 / F ADM STATUS: REG ER SERVICE 1523 ORDERING PHYSICIAN: JOSE ENRIQUE CAMACHO DO PROCEDURE(s): CXRP - CHEST PORTABLE REASON: weak ORDER NUMBER(s): [id number], ACCESSION NUMBER(s): [id number] CHEST RADIOGRAPH Indication: weak Technique: Single frontal view of the chest was obtained COMPARISON: None FINDINGS: Lines and Tubes: None Lungs: Increased interstitial prominence Pleura: No effusion. No pneumothorax. Cardiomediastinal contours: Unremarkable Bones: Unremarkable IMPRESSION: Possible viral pneumonia or mild pulmonary vascular congestion ATED BY: TRIP FORTE MD DICTATED DATE/TIME: 02/01/25 155 SIGNED BY: TRIP FORTE MD SIGNED DATE/TIME: 02/01/25 155 CC: e-Prescriptions Oseltamivir Phosphate (Tamiflu) 75 Mg Cap 1 CAP PO BID for 5 Days, #10 CAP Prov: JOSE ENRIQUE CAMACHO DO 02/01/25 Nitrofurantoin Monohydrate Mac (Macrobid) 100 Mg Cap 100 MG PO BID for 7 Days, #14 CAP Prov: JOSE ENRIQUE CAMACHO DO 02/01/25 Discharged With: Self Critical Care Note Critical Care Time?: No Stability Stability form required: No Heart Score Heart Score: Heart Score Response (Comments) Value History N/A 0 EKG N/A 0 Age N/A 0 Risk Factors N/A 0 Troponin N/A 0 Total 0 I personally scribed for JOSE ENRIQUE CAMACHO DO ([email or web address]) on 02/01/25 at 18:00. Electronically submitted by Griselda Simpson ([email or web address]). I personally scribed for JOSE ENRIQUE CAMACHO DO ([email or web address]) on 02/01/25 at 21:42. Electronically submitted by Griselda LEWIS). JOSE ENRIQUE CAMACHO DO Feb 01, 2025 16:24
[2025-02-01 18:05] LABS: Urine Protein, UAD TRACE (Negative)
[2025-02-01] MEDS ORDERED: NITR-87 PO (19:22)
[2025-02-01 20:07] LABS: COVID19 ANTIGEN SOFIA FIA NEGATIVE (NEGATIVE)
[2025-02-01] MEDS: cefTRIAXone 1GM/50ML D5W 50 ML IV ONE (20:25)
[2025-02-01] MEDS ORDERED: OSEL75CA5 PO (20:29)
[2025-02-01 21:03] VITALS: BP 122/68; PULSE 70; RESP 20; TEMP 98; O2SAT 96
== END 2025-02-01 21:09 | disposition home or self-care (01) ==
LOC: ER 14:59
DX: N39.0 Urinary tract infection, site not specified (principal); J10.1 Influenza due to other identified influenza virus with other respiratory manifestations; R53.1 Weakness; I10 Essential (primary) hypertension; E11.9 Type 2 diabetes mellitus without complications; R06.02 Shortness of breath; Z20.822 Contact with and (suspected) exposure to COVID-19; Z79.899 Other long term (current) drug therapy; Z90.49 Acquired absence of other specified parts of digestive tract; Z90.710 Acquired absence of both cervix and uterus; Z86.718 Personal history of other venous thrombosis and embolism; Z88.0 Allergy status to penicillin
CPT/HCPCS: 36415; 71045; 80053; 81001; 83605; 83880; 84484; 85025; 87040; 87077; 87186; 87426; 87804; 93005; 96365; 99285; J0696

== ENCOUNTER 2025-03-13 09:26 | Inpatient (IN) | payer MEDICARE, OTHER ==
[~2025-03-13] VITALS: Ht 167.6 cm; Wt 83.8 kg
[~2025-03-13 09:26] MED LIST changes: +NITR-87 PO; +OSEL75CA5 PO
--- NOTE | 2025-03-13 09:35 | ED.PDOC ---
History of Present Illness HPI Comments 89-year-old female brought by paramedics from home because of shortness a breath. Shortness a breath started three days ago progressively getting worse. History of hypertension DVT for which she is on Eliquis. She was in a cruise for the past eight days. States that other group members got sick during the cruise. Denies chest pain. Denies any other symptoms. Time Seen by MD: 09:28 Reviewed Notes: Nurses Notes, Medications, Allergies Allergies: Coded Allergies: Penicillins (Unverified Adverse Reaction, Unknown, unknown , 01/07/25) Home Meds Active Scripts Oseltamivir Phosphate (Tamiflu) 75 Mg Cap, 1 CAP PO BID for 5 Days, #10 CAP Prov:JOSE ENRIQUE CAMACHO DO 02/01/25 Nitrofurantoin Monohydrate Mac (Macrobid) 100 Mg Cap, 100 MG PO BID for 7 Days, #14 CAP Prov:JOSE ENRIQUE CAMACHO DO 02/01/25 Hydrocodone-Acetaminophen (Hydrocodone/Acetaminophen 5-325 mg) 1 Tab Tab, 1 TAB PO TIDP PRN for 6 Days, #18 TAB Prov:KT BROWN MD 01/20/25 Reported Medications Cranberry (CRANBERRY) 400 Mg Tab, 400 MG PO DAILY, TAB 01/07/25 Potassium Chloride (POTASSIUM CHLORIDE CR) 10 Meq Tb, 20 MEQ PO DAILY, TAB 01/07/25 Polyethylene Glycol 3350 (Miralax) 17 Gm Pow, 17 GM PO DAILY, POW 01/07/25 Probiotic Product (PROBIOTIC) Tab, 1 TAB OR DAILY, TAB 01/07/25 Apixaban Base (ELIQUIS) 5 Mg Tab, 5 MG PO BID, TAB 01/07/25 Red Yeast Rice Extract (Red Yeast Rice) 300 Mg Cap, 1200 MG PO DAILY, CAP 01/07/25 Cholecalciferol (D3) 25 Mcg Chw, 25 MCG PO DAILY, TAB.CHEW 01/07/25 Furosemide (Lasix) 40 Mg Tab, 40 MG PO PRN, TAB 01/07/25 Metoprolol Succinate (Metoprolol Succinate Er) 25 Mg Tab, 1 TAB PO DAILY 09/19/23 Information Source: Patient, Emergency Med Personnel Mode of Arrival: EMS Severity: Moderate Timing: Days Past Medical History PAST MEDICAL HISTORY: Cancer Surgical History: Appendectomy, Hysterectomy, Denies all surgeries 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 Family History Family History: Reviewed,noncontributory to illness, No family hx of Cancer, No family hx of DM, No family hx of Heart gaicomo, No family hx of HTN, No family hx ofKidney giacomo, No family hx of Liver giacomo, No family hx of Lung giacomo, No family hx of Stroke Social History Smoker: Non-Smoker Alcohol: Denies ETOH Use Drugs: Denies Drug Use Lives In: Home Constitutional: denies: chills, diaphoresis, fatigue, fever, malaise, sweats, weakness, others EENTM: denies: blurred vision, double vision, ear bleeding, ear discharge, ear drainage, ear pain, ear ringing, eye pain, eye redness, hearing loss, mouth pain, mouth swelling, nasal discharge, nose bleeding, nose congestion, nose pain, photophobia, tearing, throat pain, throat swelling, voice changes, others Respiratory: reports: cough, shortness of breath; denies: hemoptysis, orthopnea, SOB at rest, SOB with excertion, stridor, wheezing, others Cardiovascular: denies: chest pain, dizzy spells, diaphoresis, Dyspnea on exertion, edema, irregular heart beat, left arm pain, lightheadedness, palpitations, PND, syncope, others Gastrointestinal: denies: abdomen distended, abdominal pain, blood streaked bowels, constipated, diarrhea, dysphagia, difficulty swallowing, hematemesis, melena, nausea, poor appetite, poor fluid intake, rectal bleeding, rectal pain, vomiting, others Genitourinary: denies: abnormal vagina bleeding, burning, dyspareunia, dysuria, flank pain, frequency, hematuria, incontinence, pain, , vagina discharge, urgency, others Neurological: denies: dizziness, fainting, headache, left sided numbness, left sided weakness, numbness, paresthesia, pre-existing deficit, right sided numbness, right sided weakness, seizure, speech problems, tingling, tremors, weakness, others Musculoskeletal: denies: back pain, gout, joint pain, joint swelling, muscle pain, muscle stiffness, neck pain, others Integumetry: denies: bruises, change in color, change in hair/nails, dryness, laceration, lesions, lumps, rash, wounds, others Allergic/Immunocompromised: denies: Difficulty Healing, Frequent Infections, Hives, Itching, others Hematologic/Lymphatic: denies: anemia, blood clots, easy bleeding, easy bruising, swollen glands, others Endocrine: denies: excessive hunger, excessive sweating, excessive thirst, excessive urination, flushing, intolerance to cold, intolerance to heat, unex plained weight gain, unexplained weight loss, others Psychiatric: denies: anxiety, bipolar disorder, depression, hopeless, panic disorder, schizophrenia, sleepless, suicidal, others Physical Exam General Appearance: Moderate Distress HEENT: Normal ENT Inspection, Pharynx Normal, TMs Normal Neck: Full Range of Motion, Non-Tender, Normal, Normal Inspection Respiratory: Other (Coarse breath sounds) Cardiovascular: No Edema, No JVD, No Murmur, No Gallop, Normal Peripheral Pulses, Regular Rate/Rhythm Breast Exam: Deferred Gastrointestinal: No Organomegaly, Non Tender, No Pulsatile Mass, Normal Bowel Sounds, Soft Genitalia: Deferred Pelvic: Deferred Rectal: Deferred Extremities: No calf tenderness, Normal capillary refill, Normal inspection, No rmal range of motion, Non-tender, No pedal edema Musculoskeletal : Apperance: Normal Neurologic: Alert, scale manager II-XII nml as Tested, No Motor Deficits, Normal Affect, Normal Mood, No Sensory Deficits Cerebellar Function: NOT DONE Reflexes: NOT DONE Skin: Dry, Normal Color, Warm Peripheral Pulses: 3+ Radial (R), 3+ Radial (L) Lymphatic: No Adenopathy Was a procedure done? Was a procedure done?: No EKG EKG : Cardiac Rhythm: NSR Differential Dx Considerations may include: Pneumonitis Electrolyte imbalance X-Ray, Labs, Meds, VS Vital Signs Date Time Temp Pulse Resp B/P (MAP) Pulse Ox O2 Delivery O2 Flow Rate FiO2 03/13/25 13:34 97.9 75 18 144/84 (104) 97 97.9 03/13/25 13:34 75 18 97 Room Air 03/13/25 09:35 98.1 87 18 133/87 97 98.1 Lab Test 03/13/25 11:22 Range/Units White Blood Count 6.4 4.4-10.8 10^3/uL Red Blood Count 4.20 4.0-5.20 10^6/uL Hemoglobin 13.1 12.2-16.2 g/dL Hematocrit 38.6 36.0-46.0 % Mean Corpuscular Volume 92.0 80.0-100.0 fL Mean Corpuscular Hemoglobin 31.2 28.0-32.0 pg Mean Corpuscular Hemoglobin Concent 33.9 32.0-36.0 g/dL Red Cell Distribution Width 15.2 H 11.8-14.3 % Platelet Count 178 140-450 10^3/uL Mean Platelet Volume 8.6 6.9-10.8 fL Neutrophils (%) (Auto) 69.1 37.0-80.0 % Lymphocytes (%) (Auto) 14.6 10.0-50.0 % Monocytes (%) (Auto) 16.1 H 0.0-12.0 % Eosinophils (%) (Auto) 0.0 0.0-7.0 % Basophils (%) (Auto) 0.2 0.0-2.0 % Neutrophils # (Auto) 4.4 1.6-8.6 10 ^3/uL Lymphocytes # (Auto) 0.9 0.4-5.4 10 ^3/uL Monocytes # (Auto) 1.0 0-1.3 10 ^3/uL Eosinophils # (Auto) 0 0-0.8 10 ^3/uL Basophils # (Auto) 0 0-0.2 10 ^3/uL Nucleated Red Blood Cells 0.1 % D-Dimer, Quantitative 1.82 H 0.0-0.49 mg/L FEU Sodium Level 138 136-145 mmol/L Potassium Level 3.5 3.5-5.1 mmol/L Chloride Level 103 98-107 mmol/L Carbon Dioxide Level 23 20-31 mmol/L Anion Gap 12 5-15 Blood Urea Nitrogen 16 9-23 mg/dL Creatinine 1.14 H 0.550-1.02 mg/dL Glomerular Filtration Rate Calc 46 >90 mL/min BUN/Creatinine Ratio 14.0 10.0-20.0 Serum Glucose 96 74-106 mg/dL Calcium Level 8.8 8.7-10.4 mg/dL Troponin I High Sensitivity 70 *H </=34 ng/L Patient alert. Complaining of shortness a breath. Vitals stable. Answering questions. EKG reviewed does not show any acute changes. Cardiac marker elevated. WBC within normal limits. D-dimer elevated. Was given Lovenox. Was given clindamycin. Was given Levaquin. Explained to the patient. Continue monitoring. Time of 1ST Reevaluation: 17:34 Reevaluation 1ST: Unchanged Patient Education/Counseling: Diagnosis, Treatment, Prognosis Family Education/Counseling: No Family Present SEPSIS Sepsis Screen Physician Orders Chest Portable (03/13/25 09:31) Ct Angio Chest Contrast (03/13/25 13:53) Bilat Lower Dvt (03/13/25 13:55) Vital Signs Date Time Temp Pulse Resp B/P (MAP) Pulse Ox O2 Delivery O2 Flow Rate FiO2 03/13/25 13:34 97.9 75 18 144/84 (104) 97 97.9 03/13/25 13:34 75 18 97 Room Air 03/13/25 09:35 98.1 87 18 133/87 97 98.1 Laboratory Tests Test 03/13/25 11:22 White Blood Count 6.4 10^3/uL (4.4-10.8) Departure 1 Departure Time of Disposition: 17:35 Impression: Primary Impression: Pneumonitis Additional Impression: Demand ischemia Disposition: ADMITTED INPATIENT Admit to: Med Surg Condition: Guarded Critical Care Note Critical Care Time?: Yes (90 min-critical care time only) Stability Stability form required: No Heart Score Heart Score: Heart Score Response (Comments) Value History Slightly Suspicious 0 EKG Normal 0 Age >65 2 Risk Factors >3 or Hx ASHD 2 Troponin 1-2 x's Normal limit 1 Total 5 MIYA JANG MD Mar 13, 2025 09:35
--- NOTE | 2025-03-13 10:41 | DVH ---
XY CHEST PORTABLE, HISTORY: sob COMPARISON: XY CHEST PORTABLE on DOS: 02/01/25 XY CHEST PORTABLE on DOS: 02/01/25 TECHNICAL DATA: 1 view of the chest was obtained. FINDINGS: Lines and tubes: None Cardiomediastinal silhouette: normal Pulmonary vasculature: normal Lung expansion: normal Lung airspace: normal Lung interstitium: normal Pleura: normal Pneumothorax: no Bones: Multiple old right sided rib fractures. Other: no IMPRESSION: No acute intrathoracic abnormality.
[2025-03-13 11:50] LABS: Hematocrit 38.6 % (36.0-46.0); Hemoglobin 13.1 g/dL (12.2-16.2); Mean Corpuscular Hemoglobin 31.2 pg (28.0-32.0); Mean Corpuscular Volume 92.0 fL (80.0-100.0); Nucleated Red Blood Cells % 0.1 %
[2025-03-13 11:55] LABS: Chloride 103 mmol/L (98-107); Potassium 3.5 mmol/L (3.5-5.1); Sodium 138 mmol/L (136-145)
[2025-03-13 11:56] LABS: Anion Gap 12 (5-15); Calcium 8.8 mg/dL (8.7-10.4); Carbon Dioxide 23 mmol/L (20-31)
[2025-03-13 12:01] LABS: BUN/Creatinine Ratio 14.0 (10.0-20.0); Blood Urea Nitrogen 16 mg/dL (9-23); Glucose 96 mg/dL (74-106)
[2025-03-13] MEDS ORDERED: FUROSEMIDE 40 MG TAB PO SCH (15:30)
--- NOTE | 2025-03-13 15:40 | DVHHP2 ---
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 Patient states that she days ago she was on a cruise to [place] and shortly after her and her entire family got sick with a cold and cough. Patient also reports that a months ago she was on a cruise to [place]. She is requesting for a COVID test as she states that there has been high incidences of it recently. She reports that she is compliant with her medications. Cardiovascular: HTN Past Medical History Right leg DVT Past Surgical History: Appendectomy, Hysterectomy, Hernia Repair, Other (Left mastectomy, Right hip surgery and right knee surgery 22 years ago) Family History: None (Both parents ) Smoke: Quit ALCOHOL: none Drugs: None Lives: Alone Domestic Violence: Neg Review of Systems Respiratory: Shortness of breath Allergies: Coded Allergies: Penicillins (Unverified Adverse Reaction, Unknown, unknown , 01/07/25) Medications Current Medications Medications Dose Ordered Sig/Robbin Route Start Time Stop Time Status Last Admin Dose Admin Acetaminophen/ Hydrocodone Bitart 1 tab Q4HP PRN PO 03/13/25 15:30 UNV Ondansetron HCl 4 mg Q4HP PRN IV 03/13/25 15:30 UNV Acetaminophen 650 mg Q6HP PRN PO 03/13/25 15:30 UNV Apixaban 5 mg BID PO 03/13/25 22:00 UNV Furosemide 40 mg PRN PO 03/13/25 15:30 UNV Polyethylene Glycol 17 gm DAILY PO 03/14/25 10:00 UNV Patient Own Medication 25 mcg DAILY PO 03/14/25 10:00 UNV Patient Own Medication 400 mg DAILY PO 03/14/25 10:00 UNV Patient Own Medication 1 tab DAILY PO 03/14/25 10:00 UNV Patient Own Medication 20 meq DAILY PO 03/14/25 10:00 UNV Patient Own Medication 1 tab DAILY OR 03/14/25 10:00 UNV Patient Own Medication 1,200 mg DAILY PO 03/14/25 10:00 UNV Exam Vital Signs Vital Signs Date Time Temp Pulse Resp B/P (MAP) Pulse Ox O2 Delivery O2 Flow Rate FiO2 03/13/25 13:34 97.9 75 18 144/84 (104) 97 97.9 03/13/25 13:34 Room Air General Appearance: Alert, Oriented X3, Cooperative, No acute distress HEENT: Atraumatic, PERRLA, EOMI, Mucous membr. moist/pink Respiratory: Clear to auscultation, Normal air movement Cardiovascular: Regular rate, Normal S1, Normal S2 Abdominal: Normal bowel sounds, Soft Extremities: No clubbing, No cyanosis, No edema, Normal pulses Skin: No significant lesion Neuro: Normal gait, Normal speech, Strength at 5/5 X4 ext, Normal tone, Sensation intact Psych/Mental Status: Mental status NL, Mood NL Labs/Xrays Labs Test 03/13/25 11:22 Range/Units White Blood Count 6.4 4.4-10.8 10^3/uL Red Blood Count 4.20 4.0-5.20 10^6/uL Hemoglobin 13.1 12.2-16.2 g/dL Hematocrit 38.6 36.0-46.0 % Mean Corpuscular Volume 92.0 80.0-100.0 fL Mean Corpuscular Hemoglobin 31.2 28.0-32.0 pg Mean Corpuscular Hemoglobin Concent 33.9 32.0-36.0 g/dL Red Cell Distribution Width 15.2 H 11.8-14.3 % Platelet Count 178 140-450 10^3/uL Mean Platelet Volume 8.6 6.9-10.8 fL Neutrophils (%) (Auto) 69.1 37.0-80.0 % Lymphocytes (%) (Auto) 14.6 10.0-50.0 % Monocytes (%) (Auto) 16.1 H 0.0-12.0 % Eosinophils (%) (Auto) 0.0 0.0-7.0 % Basophils (%) (Auto) 0.2 0.0-2.0 % Neutrophils # (Auto) 4.4 1.6-8.6 10 ^3/uL Lymphocytes # (Auto) 0.9 0.4-5.4 10 ^3/uL Monocytes # (Auto) 1.0 0-1.3 10 ^3/uL Eosinophils # (Auto) 0 0-0.8 10 ^3/uL Basophils # (Auto) 0 0-0.2 10 ^3/uL Nucleated Red Blood Cells 0.1 % D-Dimer, Quantitative 1.82 H 0.0-0.49 mg/L FEU Sodium Level 138 136-145 mmol/L Potassium Level 3.5 3.5-5.1 mmol/L Chloride Level 103 98-107 mmol/L Carbon Dioxide Level 23 20-31 mmol/L Anion Gap 12 5-15 Blood Urea Nitrogen 16 9-23 mg/dL Creatinine 1.14 H 0.550-1.02 mg/dL Glomerular Filtration Rate Calc 46 >90 mL/min BUN/Creatinine Ratio 14.0 10.0-20.0 Serum Glucose 96 74-106 mg/dL Calcium Level 8.8 8.7-10.4 mg/dL Troponin I High Sensitivity 70 *H </=34 ng/L XY CHEST PORTABLE, HISTORY: sob COMPARISON: XY CHEST PORTABLE on DOS: 02/01/25 XY CHEST PORTABLE on DOS: 02/01/25 TECHNICAL DATA: 1 view of the chest was obtained. FINDINGS: Lines and tubes: None Cardiomediastinal silhouette: normal Pulmonary vasculature: normal Lung expansion: normal Lung airspace: normal Lung interstitium: normal Pleura: normal Pneumothorax: no Bones: Multiple old right sided rib fractures. Other: no IMPRESSION: No acute intrathoracic abnormality SEPSIS Sepsis Screen Date sepsis recognized/suspect: Mar 13, 2025 Time Sepsis recognized/suspect: 934 Recent Procedure: No On Antibiotic Therapy: No Respiratory Rate >20: No Heart Rate >90: No Temp<36 C (96.8 F) or >38.3 C: No SBP <90 or MAP <65 mmHG: No New Acute Mental Status Change: No Is the patient on CPAP, BIPAP,: No Physician Orders Chest Portable (03/13/25 09:31) Urinalysis (03/13/25 09:31) Ct Angio Chest Contrast (03/13/25 13:53) Bilat Lower Dvt (03/13/25 13:55) Admit (03/13/25 15:19) Allergies (03/13/25 15:19) Code Status (03/13/25 15:19) Hydrocodone-Acet 5/325mg Tab ([place] 5/32 (03/13/25 15:30) Ondansetron Hcl (Zofran) (03/13/25 15:30) Complete Blood Count (03/14/25 04:00) Comprehensive Metabolic Panel (03/14/25 04:00) Cardiac Diet-2gna,Lofat,Lochol (03/13/25 Dinner) Acetaminophen Tablet (Tylenol Tablet) (03/13/25 15:30) Rapid Influenza A&B (03/13/25 15:19) Covid19 Antigen Amanda (03/13/25 ) Apixaban (Eliquis) (03/13/25 22:00) Furosemide Tablet (Lasix Tablet) (03/13/25 15:30) Polyethylene Glycol 17g Powder (Miralax (03/14/25 10:00) (Nf) Cholecalciferol (D3) (03/14/25 10:00) (Nf) Cranberry (03/14/25 10:00) (Nf) Metoprolol Succinate (Metoprolol House (03/14/25 10:00) (Nf) Potassium Chloride (Potassium Chlor (03/14/25 10:00) (Nf) Probiotic Product (Probiotic) (03/14/25 10:00) (Nf) Red Yeast Rice Extract (Red Yeast R (03/14/25 10:00) Vital Signs Date Time Temp Pulse Resp B/P (MAP) Pulse Ox O2 Delivery O2 Flow Rate FiO2 03/13/25 13:34 97.9 75 18 144/84 (104) 97 97.9 03/13/25 13:34 75 18 97 Room Air 03/13/25 09:35 98.1 87 18 133/87 97 98.1 Laboratory Tests Test 03/13/25 11:22 White Blood Count 6.4 10^3/uL (4.4-10.8) Assessment/Plan Assessment/Plan Assessment Shortness of breath rule out PE MARGARITA Elevated trop History of hypertension History of breast cancer status post right mastectomy at [facility] History of 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 History of appendectomy History of hysterectomy History of right inguinal hernia repair History of right hip and knee surgery 22 years ago at [facility] Plan Admit to telemetry UA D-dimer noted Chest x-ray noted CTA chest ordered Ultrasound bilateral lower extremity ordered COVID test Influenza test Echo noted on 08/20/2024 EF 50-55% Diet Home medications reconciled DVT prophylaxis-patient on Eliquis PUD prophylaxis-not indicated no history of GERD or GI bleed Discussed plan of care with patient and nurse [id number] Advanced care planning discussed [id number] Preventive counseling healthy eating habits, physical activity, and regular checkups Plan discussed with: Patient My Orders Orders - DAINA NIX Procedure Category Date Status Time Ct Angio Chest CT 03/13/25 Logged Contrast 13:53 Bilat Lower Dvt US 03/13/25 Logged 13:55 Admit ADMIT 03/13/25 Transmitted 15:19 Allergies ADDISON 03/13/25 In Process 15:19 Code Status CODE 03/13/25 Transmitted 15:19 Hydrocodone-Acet PHA 03/13/25 Logged 5/325mg Tab ([place] 15:30 Ondansetron Hcl PHA 03/13/25 Logged (Zofran) 15:30 Complete Blood Count LAB 03/14/25 Verified 04:00 Comprehensive LAB 03/14/25 Verified Metabolic Panel 04:00 Cardiac DIET 03/13/25 Transmitted Diet-2gna,Lofat,Lochol Dinner Acetaminophen Tablet PHA 03/13/25 Logged (Tylenol Tablet) 15:30 Rapid Influenza A&B LAB 03/13/25 Logged 15:19 Covid19 Antigen Amanda LAB 03/13/25 Logged Apixaban (Eliquis) PHA 03/13/25 Logged 22:00 Furosemide Tablet PHA 03/13/25 Logged (Lasix Tablet) 15:30 Polyethylene Glycol PHA 03/14/25 Logged 17g Powder (Miralax 10:00 (Nf) Cholecalciferol PHA 03/14/25 Logged (D3) 10:00 (Nf) Cranberry PHA 03/14/25 Logged 10:00 (Nf) Metoprolol PHA 03/14/25 Logged Succinate (Metoprolol 10:00 (Nf) Potassium PHA 03/14/25 Logged Chloride (Potassium 10:00 (Nf) Probiotic PHA 03/14/25 Logged Product (Probiotic) 10:00 (Nf) Red Yeast Rice PHA 03/14/25 Logged Extract (Red Yeast R 10:00 Date of Service: Mar 13, 2025 Billing Provider: DAINA NIXP Common Visit Codes: [id number] INP/OBS CARE (HIGH) Secondary Visit Codes: [id number] COUNSELING IND, [id number] CARE PLAN 30 MINUTES 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
--- NOTE | 2025-03-13 15:59 | DVH ---
CLINICAL HISTORY: r/o dvt TECHNIQUE: Color and duplex doppler imagine of the bilateral lower extremity veins was performed. Ves anu compression and augmentation if possible was also performed. COMPARISON: RT LOWER DVT on DOS: 07/11/22, RT LOWER DVT on DOS: 02/28/22, RT LOWER DVT on DOS: 12/01/21, RT LOWER DVT on DOS: 08/06/21 FINDINGS: Right lower Extremity: Right common femoral vein: Normal compressibility and flow. Right superficial femoral vein: Normal compressibility and flow. Right popliteal vein: Normal compressibility and flow. Proximal calf veins demonstrate flow. Left lower Extremity: Left common femoral vein: Normal compressibility and flow. Left superficial femoral vein: Normal compressibility and flow. Left popliteal vein: Normal compressibility and flow. Proximal calf veins demonstrate flow. IMPRESSION: NO SONOGRAPHIC EVIDENCE FOR DEEP VENOUS THROMBOSIS IN THE BILATERAL LOWER EXTREMITY VEINS.
--- NOTE | 2025-03-13 16:27 | DVH ---
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 During the uneventful, intravenous administration of c ontrast material, multislice data acquisition was obtained through the chest. 3-D postprocessing is performed by technologist including MIP imaging Radiation Dose : CTDI vol 16.48 mGy, DLP 517.2 mGy*cm. Findings: Lungs: The lungs are clear. Pleura: Unremarkable Heart/Great vessels: No cardiomegaly or pericardial effusion. No pulmonary embolism, aneurysm, or dis section. Mediastinum: Unremarkable Soft tissues/Bones: Moderate multilevel degenerative changes of the thoracic spine. Multiple chronic right rib fracture deformities. The partially visualized upper abdomen is within normal limits. Impression: 1. No evidence of a pulmonary embolism, aneurysm, or dissection.
[2025-03-13 16:32] LABS: Urine Protein, UAD 1+ (Negative)
[2025-03-13] MEDS: IOHEXOL 350 MG/ML 100ML IJ ONE (16:39)
[2025-03-13 18:11] VITALS: BP 139/73; PULSE 64; RESP 17; TEMP 97.7; O2SAT 97
[2025-03-13 20:00] VITALS: PULSE 66
[2025-03-13 21:00] VITALS: BP 125/58; PULSE 68; RESP 18; TEMP 98.2; O2SAT 95
[2025-03-13] MEDS ORDERED: APIXABAN 5 MG TAB PO SCH (22:00)
[2025-03-13] MEDS: ENOXAPARIN SOD 60 MG/0.6 ML SYRINGE SC ONE (22:59)
[2025-03-13] MEDS: APIXABAN 2.5 MG TAB PO SCH (22:59)
[2025-03-14] VITALS (8 sets, daily range): BP systolic 114–143; BP diastolic 60–85; PULSE 54–72; RESP 16–18; TEMP 97.5–98.4; O2SAT 95–98
[2025-03-14] MEDS: cefTRIAXone 1GM/50ML D5W 50 ML IV SCH (01:08)
[2025-03-14 01:44] LABS: COVID19 ANTIGEN SOFIA FIA POSITIVE (NEGATIVE)
[2025-03-14] MEDS: CLINDAMYCIN 300MG IV 50 ML IV ONE (02:00)
[2025-03-14] MEDS: OSELTAMIVIR 75 MG CAP PO ONE (02:42)
[2025-03-14] MEDS: HYDROcodone-ACET 5/325MG TAB PO PRN (05:15)
[2025-03-14] MEDS: CHOLECALCIFEROL (VITD3) 1,000UNIT=25mCg TAB PO SCH (09:44)
[2025-03-14] MEDS: POTASSIUM CHL 20 Meq TABLET PO SCH (09:44)
[2025-03-14] MEDS: CRANBERRY 400 MG PO SCH (09:45)
[2025-03-14] MEDS: POLYETHYLENE GLYCOL 17 GM PWDR PO SCH (09:45)
[2025-03-14] MEDS: PROBIOTIC PRODUCT PO SCH (09:45)
[2025-03-14] MEDS: RED YEAST RICE EXTRACT 1200 MG PO SCH (09:45)
[2025-03-14] MEDS: METOPROLOL SUCCINATE XL 50 MG TAB PO SCH (09:45)
[2025-03-14] MEDS ORDERED: OSELTAMIVIR 75 MG CAP PO SCH (10:00)
[2025-03-14] MEDS: ACETAMINOPHEN 325 MG TAB PO PRN (10:12)
[2025-03-14 10:34] LABS: Hematocrit 33.9 % (36.0-46.0); Hemoglobin 11.5 g/dL (12.2-16.2); Mean Corpuscular Hemoglobin 30.6 pg (28.0-32.0); Mean Corpuscular Volume 90.3 fL (80.0-100.0); Nucleated Red Blood Cells % 0.2 %
[2025-03-14 10:56] LABS: Alanine Aminotransferase 14 U/L (7-40); Albumin 3.7 g/dL (3.2-4.8); Alkaline Phosphatase 80 U/L (46-116); Anion Gap 9 (5-15); BUN/Creatinine Ratio 16.5 (10.0-20.0); Bilirubin, Total 0.5 mg/dL (0.2-1.0); Blood Urea Nitrogen 17 mg/dL (9-23); Carbon Dioxide 25 mmol/L (20-31); Chloride 103 mmol/L (98-107); Glucose 97 mg/dL (74-106); Potassium 3.7 mmol/L (3.5-5.1); Sodium 137 mmol/L (136-145); Total Protein 5.8 g/dL (5.7-8.2)
[2025-03-14 10:58] LABS: Calcium 8.3 mg/dL (8.7-10.4)
--- NOTE | 2025-03-14 12:06 | DVHPN2 ---
Changes from previous H/P or p: No Changes Respiratory: Shortness of breath Objective Vitals Vital Signs Date Time Temp Pulse Resp B/P (MAP) Pulse Ox O2 Delivery O2 Flow Rate FiO2 03/14/25 09:45 56 140/68 03/14/25 09:00 97.6 16 95 97.6 03/14/25 08:00 Room Air* 0 21 Intake/Output Intake and Output 03/14/25 07:00 Intake Total 350 ml Balance 350 ml Intake Oral 250 ml IV Total 100 ml # Voids 2 # Bowel Movements 1 Medications Current Medications Medications Dose Ordered Sig/Robbin Route Start Time Stop Time Status Last Admin Dose Admin Acetaminophen/ Hydrocodone Bitart 1 tab Q4HP PRN PO 03/13/25 15:30 03/14/25 05:15 1 TAB Ondansetron HCl 4 mg Q4HP PRN IV 03/13/25 15:30 Acetaminophen 650 mg Q6HP PRN PO 03/13/25 15:30 03/14/25 10:12 650 MG Furosemide 40 mg PRN PO 03/13/25 15:30 Polyethylene Glycol 17 gm DAILY PO 03/14/25 10:00 03/14/25 09:45 17 GM Cholecalciferol 1,000 unit DAILY PO 03/14/25 10:00 03/14/25 09:44 1,000 UNIT Patient Own Medication 400 mg DAILY PO 03/14/25 10:00 Metoprolol Succinate 25 mg DAILY PO 03/14/25 10:00 Potassium Chloride 20 meq DAILY PO 03/14/25 10:00 03/14/25 09:44 20 MEQ Patient Own Medication 1 tab DAILY PO 03/14/25 10:00 Patient Own Medication 1,200 mg DAILY PO 03/14/25 10:00 Ceftriaxone Sodium 50 ml @ 100 mls/hr DAILY@09 IV 03/13/25 17:45 03/14/25 09:45 100 MLS/HR Apixaban 2.5 mg BID PO 03/13/25 22:00 03/14/25 09:44 2.5 MG Guaifenesin 200 mg Q6HP PRN PO 03/13/25 21:15 03/13/25 23:10 200 MG Oseltamivir Phosphate 75 mg Q12HR PO 03/14/25 10:00 03/19/25 09:59 UNV Oseltamivir Phosphate 30 mg Q12H PO 03/14/25 14:00 03/19/25 13:59 Laboratory Results Laboratory Tests 03/14/25 10:18 Chemistry Test 03/14/25 10:18 Albumin 3.7 g/dL (3.2-4.8) Calcium Level 8.3 mg/dL (8.7-10.4) L Total Protein 5.8 g/dL (5.7-8.2) LFT Test 03/14/25 10:18 Alanine Aminotransferase (ALT) 14 U/L (7-40) Alkaline Phosphatase 80 U/L (46-116) Aspartate Amino Transferase (AST) 35 U/L (13-40) Total Bilirubin 0.5 mg/dL (0.2-1.0) Urinalysis Test 03/13/25 15:53 Urine Color Yellow (Yellow) Urine Clarity Turbid (Clear) H Urine pH 5.5 (5.0-9.0) Urine Specific [place] 1.022 (1.001-1.035) Urine Protein 1+ (Negative) H Urine Ketones 1+ (Negative) H Urine Blood Trace /uL (Negative) H Urine Nitrite Negative (Negative) Urine Bilirubin Negative (Negative) Urine Urobilinogen Normal mg/dL (Negative) Urine Leukocyte Esterase 1+ /uL (Negative) Urine RBC 2 /hpf (0 - 4) Urine Microscopic WBC 17 /HPF (0-5) H Urine Squamous Epithelial Cells Mod /hpf (<5) Urine Bacteria Many /hpf (None Seen) H Urine Hyaline Casts Few /lpf (0 - 2) Urine Mucus Few (None Seen) Urine Glucose Normal mg/dL (Normal) Labs and/or images reviewed: Labs reviewed by me, Image(s) reviewed by me Assessment/Plan Assessment/Plan Hypoxic respiratory failure: Oxygen by nasal COVID positive pneumonia Type B flu: Tamiflu Hypertension DVT right leg: Eliquis PE ruled out CKD3 Status post right inguinal hernia repair Time Spent 70 minutes Advanced care planning time 20 minutes Patient is full code Plan discussed with: Patient Date of Service: Mar 14, 2025 Billing Provider: ROME BENNETT MD Common Visit Codes: [id number] CARE 30-74 MIN ROME BENNETT MD Mar 14, 2025 12:06
[2025-03-14] MEDS: OSELTAMIVIR 30 MG CAP PO SCH (13:56)
[2025-03-14] MEDS: ZINC SULFATE 220mg CAP or TAB PO ONE (13:56)
--- NOTE | 2025-03-14 14:08 | DVHPN2 ---
Progress Note - Dictate Date Seen: Mar 14, 2025 Medical Necessity Reason Pt with a Central, PICC or Fol: No Subjective PT WITH SOB COVID PNA HTN HTN HX OF BREAST CA HX OF TKR GERD HX OF DVT ANEMIA vital signs Vital Sign Date Time Temp Pulse Resp B/P (MAP) Pulse Ox O2 Delivery O2 Flow Rate FiO2 03/14/25 09:45 56 140/68 03/14/25 09:00 97.6 16 95 97.6 03/14/25 08:00 Room Air* 0 21 Total Intake and Output 03/13/25 03/13/25 03/14/25 15:00 23:00 07:00 Intake Total 350 ml Balance 350 ml medications Current Medications Medications Dose Ordered Sig/Robbin Route Start Time Stop Time Status Last Admin Dose Admin Acetaminophen/ Hydrocodone Bitart 1 tab Q4HP PRN PO 03/13/25 15:30 03/14/25 05:15 1 TAB Ondansetron HCl 4 mg Q4HP PRN IV 03/13/25 15:30 Acetaminophen 650 mg Q6HP PRN PO 03/13/25 15:30 03/14/25 10:12 650 MG Furosemide 40 mg PRN PO 03/13/25 15:30 Polyethylene Glycol 17 gm DAILY PO 03/14/25 10:00 03/14/25 09:45 17 GM Cholecalciferol 1,000 unit DAILY PO 03/14/25 10:00 03/14/25 09:44 1,000 UNIT Patient Own Medication 400 mg DAILY PO 03/14/25 10:00 Metoprolol Succinate 25 mg DAILY PO 03/14/25 10:00 Potassium Chloride 20 meq DAILY PO 03/14/25 10:00 03/14/25 09:44 20 MEQ Patient Own Medication 1 tab DAILY PO 03/14/25 10:00 Patient Own Medication 1,200 mg DAILY PO 03/14/25 10:00 Ceftriaxone Sodium 50 ml @ 100 mls/hr DAILY@09 IV 03/13/25 17:45 03/14/25 09:45 100 MLS/HR Apixaban 2.5 mg BID PO 03/13/25 22:00 03/14/25 09:44 2.5 MG Guaifenesin 200 mg Q6HP PRN PO 03/13/25 21:15 03/13/25 23:10 200 MG Oseltamivir Phosphate 75 mg Q12HR PO 03/14/25 10:00 03/19/25 09:59 UNV Oseltamivir Phosphate 30 mg Q12H PO 03/14/25 14:00 03/19/25 13:59 03/14/25 13:56 30 MG Ascorbic Acid 500 mg BID PO 03/14/25 22:00 Zinc Sulfate 220 mg DAILY PO 03/15/25 10:00 laboratory and microbiology Laboratory Tests 03/14/25 10:18 Test 03/14/25 10:18 Range/Units Serum Glucose 97 74-106 mg/dL Problem List SOB COVID PNA HTN HTN HX OF BREAST CA HX OF TKR GERD HX OF DVT ANEMIA HX OF IBS WITH CONSTIPATION Assessment/Plan CONT COVID PROTOCOL FLU TYPE B FLU PROTOCOL Plan discussed with: Patient CHRISTIANNE ZEPEDA MD Mar 14, 2025 14:08
[2025-03-14] MEDS: ONDANSETRON HCL 4 MG/2 ML VIAL IV PRN (15:10)
[2025-03-14] MEDS: ASCORBIC ACID 500 MG TAB PO SCH (22:21)
[2025-03-15] VITALS (8 sets, daily range): BP systolic 120–148; BP diastolic 56–82; PULSE 63–96; RESP 15–20; TEMP 97.8–98.4; O2SAT 91–97
[2025-03-15] MEDS: ZINC SULFATE 220mg CAP or TAB PO SCH (09:19)
[2025-03-15] MEDS: THROAT LOZENGES(CEPASTAT) MT PRN (23:15)
[2025-03-16] VITALS (10 sets, daily range): BP systolic 132–156; BP diastolic 64–82; PULSE 59–72; RESP 16–20; TEMP 97.8–98.5; O2SAT 91–100
[2025-03-16] MEDS: ALBUTEROL SULF HFA 90MCG INH 200DOSE IN SCH (22:24)
[2025-03-17] VITALS (12 sets, daily range): BP systolic 102–156; BP diastolic 70–84; PULSE 62–81; RESP 16–18; TEMP 97.6–98.5; O2SAT 92–100
--- NOTE | 2025-03-17 12:54 | DVHPN2 ---
Progress Note - Dictate Date Seen: Mar 15, 2025 Medical Necessity Reason Pt with a Central, PICC or Fol: No Subjective PT WITH SOB COVID PNA HTN HTN HX OF BREAST CA HX OF TKR GERD HX OF DVT ANEMIA vital signs Vital Sign Date Time Temp Pulse Resp B/P (MAP) Pulse Ox O2 Delivery O2 Flow Rate FiO2 03/17/25 09:00 98.2 65 18 149/70 (96) 99 98.2 03/17/25 08:00 Nasal Cannula* 2 28 Total Intake and Output 03/16/25 03/16/25 03/17/25 15:00 23:00 07:00 Intake Total 300 ml 200 ml Balance 300 ml 200 ml medications Current Medications Medications Dose Ordered Sig/Robbin Route Start Time Stop Time Status Last Admin Dose Admin Acetaminophen/ Hydrocodone Bitart 1 tab Q4HP PRN PO 03/13/25 15:30 03/14/25 05:15 1 TAB Ondansetron HCl 4 mg Q4HP PRN IV 03/13/25 15:30 03/14/25 15:10 4 MG Acetaminophen 650 mg Q6HP PRN PO 03/13/25 15:30 03/15/25 09:48 650 MG Furosemide 40 mg PRN PO 03/13/25 15:30 Polyethylene Glycol 17 gm DAILY PO 03/14/25 10:00 03/17/25 08:23 17 GM Cholecalciferol 1,000 unit DAILY PO 03/14/25 10:00 03/17/25 08:21 1,000 UNIT Patient Own Medication 400 mg DAILY PO 03/14/25 10:00 Metoprolol Succinate 25 mg DAILY PO 03/14/25 10:00 03/17/25 08:22 25 MG Potassium Chloride 20 meq DAILY PO 03/14/25 10:00 03/17/25 08:21 20 MEQ Patient Own Medication 1 tab DAILY PO 03/14/25 10:00 Patient Own Medication 1,200 mg DAILY PO 03/14/25 10:00 Ceftriaxone Sodium 50 ml @ 100 mls/hr DAILY@09 IV 03/13/25 17:45 03/17/25 08:20 100 MLS/HR Apixaban 2.5 mg BID PO 03/13/25 22:00 03/17/25 08:21 2.5 MG Guaifenesin 200 mg Q6HP PRN PO 03/13/25 21:15 03/16/25 21:54 200 MG Oseltamivir Phosphate 75 mg Q12HR PO 03/14/25 10:00 03/19/25 09:59 UNV Oseltamivir Phosphate 30 mg Q12H PO 03/14/25 14:00 03/19/25 13:59 03/17/25 02:23 30 MG Ascorbic Acid 500 mg BID PO 03/14/25 22:00 03/17/25 08:21 500 MG Zinc Sulfate 220 mg DAILY PO 03/15/25 10:00 03/17/25 08:21 220 MG Throat Lozenges 1 jermaine Q2HP PRN MT 03/15/25 13:15 03/16/25 09:24 1 JERMAINE Albuterol 180 mcg TID IN 03/16/25 22:00 03/17/25 07:53 180 MCG laboratory and microbiology Laboratory Tests 03/14/25 10:18 Test 03/14/25 10:18 Range/Units Serum Glucose 97 74-106 mg/dL Problem List SOB COVID PNA HTN HTN HX OF BREAST CA HX OF TKR GERD HX OF DVT ANEMIA HX OF IBS WITH CONSTIPATION Assessment/Plan CONT COVID PROTOCOL FLU TYPE B FLU PROTOCOL CXR Dietary Evaluation Review Recommendations by RD: Protein Supplementation Comments: 1) Initiate Ensure High Protein qd 2) Continue vitamin C, zinc, and vitamin D supplementation 3) Encourage optimal PO intake 4) Follow-up with cardiology and pulmonology 5) Continue to monitor I&O, labs, and skin integrity Expected Outcomes/Goals: 1) appetite and labs to improve 2) f/u in 3-5 days Plan discussed with: Patient CHRISTIANNE ZEPEDA MD Mar 17, 2025 12:54
--- NOTE | 2025-03-17 13:54 | DVH ---
INDICATION: COVID/ INFLUENZA TECHNIQUE: Frontal view of the chest. COMPARISON: CT CT ANGIO CHEST CONTRAST on DOS: 03/13/25, XY CHEST PORTABLE on DOS: 03/13/25, XY CHEST P ORTABLE on DOS: 02/01/25 FINDINGS: . The heart and mediastinal contours are grossly unremarkable. There is no evidence of pleural disea se. The lungs are clear. The bony structures of the chest are intact without fracture. IMPRESSION: 1. No evidence of acute disease.
[2025-03-17 15:10] LABS: Hematocrit 36.6 % (36.0-46.0); Hemoglobin 12.3 g/dL (12.2-16.2); Mean Corpuscular Hemoglobin 30.6 pg (28.0-32.0); Mean Corpuscular Volume 90.9 fL (80.0-100.0); Nucleated Red Blood Cells % 0.5 %
[2025-03-17 15:36] LABS: Alanine Aminotransferase 20 U/L (7-40); Albumin 3.8 g/dL (3.2-4.8); Alkaline Phosphatase 99 U/L (46-116); Anion Gap 9 (5-15); BUN/Creatinine Ratio 12.0 (10.0-20.0); Blood Urea Nitrogen 12 mg/dL (9-23); Calcium 8.9 mg/dL (8.7-10.4); Carbon Dioxide 25 mmol/L (20-31); Chloride 102 mmol/L (98-107); Potassium 4.3 mmol/L (3.5-5.1); Total Protein 6.0 g/dL (5.7-8.2)
[2025-03-17 15:37] LABS: Bilirubin, Total 0.5 mg/dL (0.2-1.0)
[2025-03-17 15:39] LABS: Glucose 107 mg/dL (74-106); Sodium 136 mmol/L (136-145)
[2025-03-18] VITALS (12 sets, daily range): BP systolic 117–133; BP diastolic 69–80; PULSE 60–75; RESP 16–18; TEMP 97.6–98.6; O2SAT 93–100
--- NOTE | 2025-03-18 13:33 | DVHPN2 ---
Progress Note - Dictate Date Seen: Mar 18, 2025 Medical Necessity Reason Pt with a Central, PICC or Fol: No Subjective PT WITH SOB COVID PNA HTN HTN HX OF BREAST CA HX OF TKR GERD HX OF DVT ANEMIA vital signs Vital Sign Date Time Temp Pulse Resp B/P (MAP) Pulse Ox O2 Delivery O2 Flow Rate FiO2 03/18/25 09:39 68 128/80 03/18/25 09:00 98.1 17 97 98.1 03/18/25 08:00 Nasal Cannula* 2 28 Total Intake and Output 03/17/25 03/17/25 03/18/25 15:00 23:00 07:00 Intake Total 50 ml 300 ml 200 ml Output Total 500 ml Balance 50 ml 300 ml -300 ml medications Current Medications Medications Dose Ordered Sig/Robbin Route Start Time Stop Time Status Last Admin Dose Admin Acetaminophen/ Hydrocodone Bitart 1 tab Q4HP PRN PO 03/13/25 15:30 03/14/25 05:15 1 TAB Ondansetron HCl 4 mg Q4HP PRN IV 03/13/25 15:30 03/14/25 15:10 4 MG Acetaminophen 650 mg Q6HP PRN PO 03/13/25 15:30 03/15/25 09:48 650 MG Furosemide 40 mg PRN PO 03/13/25 15:30 Polyethylene Glycol 17 gm DAILY PO 03/14/25 10:00 03/18/25 09:26 17 GM Cholecalciferol 1,000 unit DAILY PO 03/14/25 10:00 03/18/25 09:25 1,000 UNIT Patient Own Medication 400 mg DAILY PO 03/14/25 10:00 Metoprolol Succinate 25 mg DAILY PO 03/14/25 10:00 03/18/25 09:39 25 MG Potassium Chloride 20 meq DAILY PO 03/14/25 10:00 03/18/25 09:25 20 MEQ Patient Own Medication 1 tab DAILY PO 03/14/25 10:00 Patient Own Medication 1,200 mg DAILY PO 03/14/25 10:00 Ceftriaxone Sodium 50 ml @ 100 mls/hr DAILY@09 IV 03/13/25 17:45 03/18/25 09:25 100 MLS/HR Apixaban 2.5 mg BID PO 03/13/25 22:00 03/18/25 09:25 2.5 MG Guaifenesin 200 mg Q6HP PRN PO 03/13/25 21:15 03/17/25 21:24 200 MG Oseltamivir Phosphate 75 mg Q12HR PO 03/14/25 10:00 03/19/25 09:59 UNV Oseltamivir Phosphate 30 mg Q12H PO 03/14/25 14:00 03/19/25 13:59 03/18/25 02:22 30 MG Ascorbic Acid 500 mg BID PO 03/14/25 22:00 03/18/25 09:24 500 MG Zinc Sulfate 220 mg DAILY PO 03/15/25 10:00 03/18/25 09:25 220 MG Throat Lozenges 1 jermaine Q2HP PRN MT 03/15/25 13:15 03/16/25 09:24 1 JERMAINE Albuterol 180 mcg TID IN 03/16/25 22:00 03/18/25 07:07 180 MCG laboratory and microbiology Laboratory Tests 03/17/25 14:49 Test 03/17/25 14:49 Range/Units Serum Glucose 107 H 74-106 mg/dL Problem List SOB COVID PNA HTN HTN HX OF BREAST CA HX OF TKR GERD HX OF DVT ANEMIA HX OF IBS WITH CONSTIPATION Assessment/Plan CONT COVID PROTOCOL FLU TYPE B FLU PROTOCOL CXR NEGATIVE LYTES WITHIN NL Dietary Evaluation Review Recommendations by RD: Protein Supplementation Comments: 1) Initiate Ensure High Protein qd 2) Continue vitamin C, zinc, and vitamin D supplementation 3) Encourage optimal PO intake 4) Follow-up with cardiology and pulmonology 5) Continue to monitor I&O, labs, and skin integrity Expected Outcomes/Goals: 1) appetite and labs to improve 2) f/u in 3-5 days Plan discussed with: Patient CHRISTIANNE ZEPEDA MD Mar 18, 2025 13:33
[2025-03-19] VITALS (8 sets, daily range): BP systolic 124–138; BP diastolic 60–79; PULSE 65–72; RESP 14–17; TEMP 98–98.1; O2SAT 93–99
--- NOTE | 2025-03-19 13:46 | DVHDS2 ---
Discharge Summary Date of Admission Mar 13, 2025 at 15:19 Date of Discharge: Mar 19, 2025 Admitting Diagnosis SOB PNA Labs/Diagnostic Data: Laboratory Results Test 03/17/25 14:49 03/13/25 23:57 03/13/25 15:53 03/13/25 11:22 White Blood Count 4.1 10^3/uL (4.4-10.8) Red Blood Count 4.03 10^6/uL (4.0-5.20) Hemoglobin 12.3 g/dL (12.2-16.2) Hematocrit 36.6 % (36.0-46.0) Mean Corpuscular Volume 90.9 fL (80.0-100.0) Mean Corpuscular Hemoglobin 30.6 pg (28.0-32.0) Mean Corpuscular Hemoglobin Concent 33.7 g/dL (32.0-36.0) Red Cell Distribution Width 15.0 % (11.8-14.3) Platelet Count 182 10^3/uL (140-450) Mean Platelet Volume 8.5 fL (6.9-10.8) Neutrophils (%) (Auto) 48.4 % (37.0-80.0) Lymphocytes (%) (Auto) 36.5 % (10.0-50.0) Monocytes (%) (Auto) 14.2 % (0.0-12.0) Eosinophils (%) (Auto) 0.5 % (0.0-7.0) Basophils (%) (Auto) 0.4 % (0.0-2.0) Neutrophils # (Auto) 2.0 10 ^3/uL (1.6-8.6) Lymphocytes # (Auto) 1.5 10 ^3/uL (0.4-5.4) Monocytes # (Auto) 0.6 10 ^3/uL (0-1.3) Eosinophils # (Auto) 0 10 ^3/uL (0-0.8) Basophils # (Auto) 0 10 ^3/uL (0-0.2) Nucleated Red Blood Cells 0.5 % Sodium Level 136 mmol/L (136-145) Potassium Level 4.3 mmol/L (3.5-5.1) Chloride Level 102 mmol/L (98-107) Carbon Dioxide Level 25 mmol/L (20-31) Anion Gap 9 (5-15) Blood Urea Nitrogen 12 mg/dL (9-23) Creatinine 1.00 mg/dL (0.550-1.02) Glomerular Filtration Rate Calc 54 mL/min (>90) BUN/Creatinine Ratio 12.0 (10.0-20.0) Serum Glucose 107 mg/dL (74-106) Calcium Level 8.9 mg/dL (8.7-10.4) Total Bilirubin 0.5 mg/dL (0.2-1.0) Aspartate Amino Transferase (AST) 37 U/L (13-40) Alanine Aminotransferase (ALT) 20 U/L (7-40) Alkaline Phosphatase 99 U/L (46-116) Total Protein 6.0 g/dL (5.7-8.2) Albumin 3.8 g/dL (3.2-4.8) Influenza Type A Antigen Negative (Negative) Influenza Type B Antigen Positive (Negative) SARS-CoV-2 Antigen (Rapid) Positive (NEGATIVE) Urine Color Yellow (Yellow) Urine Clarity Turbid (Clear) Urine pH 5.5 (5.0-9.0) Urine Specific [place] 1.022 (1.001-1.035) Urine Protein 1+ (Negative) Urine Ketones 1+ (Negative) Urine Blood Trace /uL (Negative) Urine Nitrite Negative (Negative) Urine Bilirubin Negative (Negative) Urine Urobilinogen Normal mg/dL (Negative) Urine Leukocyte Esterase 1+ /uL (Negative) Urine RBC 2 /hpf (0 - 4) Urine Microscopic WBC 17 /HPF (0-5) Urine Squamous Epithelial Cells Mod /hpf (<5) Urine Bacteria Many /hpf (None Seen) Urine Hyaline Casts Few /lpf (0 - 2) Urine Mucus Few (None Seen) Urine Glucose Normal mg/dL (Normal) D-Dimer, Quantitative 1.82 mg/L FEU (0.0-0.49) Troponin I High Sensitivity 70 ng/L (</=34) Other Laboratory Tests 03/17/25 14:49 Brief Hx & Hospital Course: SOB COVID PNA HTN HTN HX OF BREAST CA HX OF TKR GERD HX OF DVT ANEMIA HX OF IBS WITH CONSTIPATION CONT COVID PROTOCOL FLU TYPE B FLU PROTOCOL CXR NEGATIVE LYTES WITHIN NL Condition at Discharge: Guarded Final Diagnosis/Problems List SOB COVID PNA HTN HTN HX OF BREAST CA HX OF TKR GERD HX OF DVT ANEMIA HX OF IBS WITH CONSTIPATION Assessment/Plan CONT COVID PROTOCOL FLU TYPE B FLU PROTOCOL CXR NEGATIVE LYTES WITHIN NL Discharge Disposition: Home Discharge Instruct/Medications Diet: Cardiac 2g Na,low cholest Activity: Light activity Follow Up/Referral: 1 WEEK Medications: CONT HOME MEDS Scheduled Apixaban Base (Eliquis), 5 MG PO BID, (Reported) Cholecalciferol (D3), 25 MCG PO DAILY, (Reported) Cranberry (Cranberry), 400 MG PO DAILY, (Reported) Furosemide (Lasix), 40 MG PO PRN, (Reported) Metoprolol Succinate (Metoprolol Succinate Er), 1 TAB PO DAILY, (Reported) Nitrofurantoin Monohydrate Mac (Macrobid), 100 MG PO BID Oseltamivir Phosphate (Tamiflu), 1 CAP PO BID Polyethylene Glycol 3350 (Miralax), 17 GM PO DAILY, (Reported) Potassium Chloride (Potassium Chloride Cr), 20 MEQ PO DAILY, (Reported) Probiotic Product (Probiotic), 1 TAB OR DAILY, (Reported) Red Yeast Rice Extract (Red Yeast Rice), 1,200 MG PO DAILY, (Reported) Scheduled PRN Hydrocodone-Acetaminophen (Hydrocodone/Acetaminophen 5-325 mg), 1 TAB PO TIDP PRN Discharge Statement: "Patient was advised to return to the ER or call 911 if any headaches, dizziness, shortness of breath, chest pain, abdominal pain, bleeding, fevers, or worsening of medical condition. Patient was counseled about treatment plan, medications, possible side effects, patientverbalized understanding. All questions were answered to the best of my ability. This discharge took greater then 30 minutes in planning, reviewing documentation, counseling the patient, and discussing with other team members." ASSESSMENT ASSESSMENT Assessment SOB COVID PNA HTN HTN HX OF BREAST CA HX OF TKR GERD HX OF DVT ANEMIA HX OF IBS WITH CONSTIPATION Assessment/Plan CONT COVID PROTOCOL FLU TYPE B FLU PROTOCOL CXR NEGATIVE LYTES WITHIN NL CHRISTIANNE [email or web address] MD Mar 19, 2025 13:46
== END 2025-03-19 16:11 | disposition home or self-care (01) | DRG 177 ==
LOC: ER 09:26 → EDBD 09:26 → OVERFLOW 15:19 → TELE-WESTW 18:09
PROVIDERS: ADMIT Family Medicine; ATTEND Internal Medicine Cardiovascular Disease
DX: U07.1 COVID-19 (principal); J10.08 Influenza due to other identified influenza virus with other specified pneumonia; J12.82 Pneumonia due to coronavirus disease 2019; J96.91 Respiratory failure, unspecified with hypoxia; N17.9 Acute kidney failure, unspecified; I24.89 Other forms of acute ischemic heart disease; I12.9 Hypertensive chronic kidney disease with stage 1 through stage 4 chronic kidney disease, or unspecified chronic kidney disease; N18.30 Chronic kidney disease, stage 3 unspecified; D64.9 Anemia, unspecified; K21.9 Gastro-esophageal reflux disease without esophagitis; J98.4 Other disorders of lung; Z90.710 Acquired absence of both cervix and uterus; Z90.49 Acquired absence of other specified parts of digestive tract; Z90.13 Acquired absence of bilateral breasts and nipples; Z86.718 Personal history of other venous thrombosis and embolism; Z85.3 Personal history of malignant neoplasm of breast; Z79.01 Long term (current) use of anticoagulants; Z88.0 Allergy status to penicillin
CPT/HCPCS: 36415; 71045; 71275; 80048; 80053; 81001; 84484; 85025; 85379; 87426; 87804; 93970; 94640; 99291; G0378; G9035; J2405; J3490